=== PATIENT | female | born 1955 | race Caucasian/White ===

== ENCOUNTER → 2016-05-26 | Outpatient (REF) | payer MEDICARE ==
[~2016-05-26] MED LIST: ASPI325T PO; CELE20TA PO; FLAG500T PO; GAVISUS PO; HYDR25T PO; LOPE2CA PO; MYLASUS2 PO; NEXI20CA PO; VIVE0.1D TD; WELLTAB38 PO; XANA1TAB2 PO
== END ==
LOC: M LAB REF 09:23
PROVIDERS: ATTEND Internal Medicine Gastroenterology
DX: R10.33 Periumbilical pain (principal); R11.0 Nausea; R63.0 Anorexia; R19.7 Diarrhea, unspecified; K58.0 Irritable bowel syndrome with diarrhea; K31.89 Other diseases of stomach and duodenum

== ENCOUNTER → 2017-03-08 | Outpatient (REF) | payer MEDICARE ==
[~2017-03-08] MED LIST changes: +HYDR-3363 PO; -HYDR25T PO; +MYLASUS16 PO; -MYLASUS2 PO
[2017-03-08 12:17] LABS: MEAN CORPUSCULAR HEMOGLOBIN 31.3 pg (27.0-33.0); MEAN CORPUSCULAR HGB CONC 33.4 g/dl (32.0-36.5); MEAN CORPUSCULAR VOLUME 93.6 fl (80.0-96.0); PLATELET COUNT, AUTOMATED 269 10^3/uL (150-450); RED CELL DISTRIBUTION WIDTH 13.3 % (11.5-14.5); WHITE BLOOD COUNT 11.3 10^3/uL (4.0-10.0)
[2017-03-08 12:49] LABS: VITAMIN B12 LEVEL 614 PG/ML (247-911)
[2017-03-08 12:57] LABS: ALBUMIN 3.6 GM/DL (3.2-5.2); ALBUMIN/GLOBULIN RATIO 1.16 (1.00-1.93); ALKALINE PHOSPHATASE 109 U/L (45-117); ALT/SGPT 21 U/L (12-78); ANION GAP 7 MEQ/L (8-16); AST/SGOT 11 U/L (15-37); BILIRUBIN,TOTAL 0.4 MG/DL (0.2-1.0); BLOOD UREA NITROGEN 11 MG/DL (7-18); CALCIUM LEVEL 9.1 MG/DL (8.8-10.2); CARBON DIOXIDE LEVEL 29 MEQ/L (21-32); CHLORIDE LEVEL 106 MEQ/L (98-107); CHOLESTEROL LEVEL 202 MG/DL (<200); CREATININE FOR GFR 0.83 MG/DL (0.55-1.02); GLOMERULAR FILTRATION RATE > 60.0 (>45); GLUCOSE, FASTING 75 MG/DL (80-110); POTASSIUM SERUM 4.2 MEQ/L (3.5-5.1); SODIUM LEVEL 142 MEQ/L (136-145); TOTAL PROTEIN 6.7 GM/DL (6.4-8.2); TRIGLYCERIDES LEVEL 117 MG/DL (<150)
== END ==
LOC: M SFHCLERA 10:18
PROVIDERS: ATTEND Physician Assistant
DX: E78.2 Mixed hyperlipidemia (principal); F41.9 Anxiety disorder, unspecified; E53.8 Deficiency of other specified B group vitamins

== ENCOUNTER → 2018-02-16 | Outpatient (REF) | payer MEDICARE ==
[2018-02-16 16:57] LABS: ALBUMIN 3.7 GM/DL (3.2-5.2); ALBUMIN/GLOBULIN RATIO 1.32 (1.00-1.93); ALKALINE PHOSPHATASE 96 U/L (45-117); ALT/SGPT 21 U/L (12-78); AMYLASE 56 U/L (25-115); ANION GAP 7 MEQ/L (8-16); AST/SGOT 13 U/L (7-37); BASO % 0.1 % (0.0-1.0); BILIRUBIN,TOTAL 0.4 MG/DL (0.2-1.0); BLOOD UREA NITROGEN 12 MG/DL (7-18); CALCIUM LEVEL 8.8 MG/DL (8.8-10.2); CARBON DIOXIDE LEVEL 28 MEQ/L (21-32); CHLORIDE LEVEL 107 MEQ/L (98-107); CREATININE FOR GFR 0.83 MG/DL (0.55-1.30); GLOMERULAR FILTRATION RATE > 60.0 (>45); GLUCOSE, FASTING 75 MG/DL (70-100); HEMATOCRIT 43.4 % (36.0-47.0); HEMOGLOBIN 14.6 g/dl (12.0-15.5); IMMATURE GRANULOCYTE % 0.3 % (0-3.0); LIPASE 166 U/L (73-393); LYMPH # 4.3 10^3/uL (1.5-4.5); LYMPH % 37.6 % (24.0-44.0); MEAN CORPUSCULAR HEMOGLOBIN 31.4 pg (27.0-33.0); MEAN CORPUSCULAR HGB CONC 33.6 g/dl (32.0-36.5); MEAN CORPUSCULAR VOLUME 93.3 fl (80.0-96.0); MONO # 0.8 10^3/uL (0.0-0.8); MONO % 6.7 % (0.0-5.0); NEUTROPHILS # 6.3 10^3/uL (1.8-7.7); NEUTROPHILS % 55.3 % (36.0-66.0); PLATELET COUNT, AUTOMATED 261 10^3/uL (150-450); POTASSIUM SERUM 4.4 MEQ/L (3.5-5.1); RED BLOOD COUNT 4.65 10^6/uL (4.00-5.40); SODIUM LEVEL 142 MEQ/L (136-145); TOTAL PROTEIN 6.5 GM/DL (6.4-8.2); WHITE BLOOD COUNT 11.5 10^3/uL (4.0-10.0)
== END ==
LOC: M SFHCPLAZ 12:59
DX: R10.13 Epigastric pain (principal)
CPT/HCPCS: 82150

== ENCOUNTER → 2018-04-15 | Outpatient (REF) | payer MEDICARE ==
[2018-04-15 11:55] LABS: HEMATOCRIT 46.1 % (36.0-47.0); HEMOGLOBIN 15.3 g/dl (12.0-15.5); MEAN CORPUSCULAR HEMOGLOBIN 31.4 pg (27.0-33.0); MEAN CORPUSCULAR HGB CONC 33.2 g/dl (32.0-36.5); MEAN CORPUSCULAR VOLUME 94.5 fl (80.0-96.0); PLATELET COUNT, AUTOMATED 269 10^3/uL (150-450); RED BLOOD COUNT 4.88 10^6/uL (4.00-5.40); RED CELL DISTRIBUTION WIDTH 13.1 % (11.5-14.5); WHITE BLOOD COUNT 8.6 10^3/uL (4.0-10.0)
[2018-04-15 12:21] LABS: MALB URINE SIEMENS 9.1 MG/L; MAU/CREAT RATIO 5.4 MCG/MG (0.0-30.0)
[2018-04-15 12:37] LABS: ALBUMIN 3.8 GM/DL (3.2-5.2); ALBUMIN/GLOBULIN RATIO 1.41 (1.00-1.93); ALKALINE PHOSPHATASE 109 U/L (45-117); ALT/SGPT 24 U/L (12-78); ANION GAP 6 MEQ/L (8-16); AST/SGOT 12 U/L (7-37); BILIRUBIN,TOTAL 0.6 MG/DL (0.2-1.0); BLOOD UREA NITROGEN 14 MG/DL (7-18); CALCIUM LEVEL 8.9 MG/DL (8.8-10.2); CARBON DIOXIDE LEVEL 31 MEQ/L (21-32); CHLORIDE LEVEL 105 MEQ/L (98-107); CHOLESTEROL LEVEL 181 MG/DL (<200); CHOLESTEROL RISK RATIO 3.067 (<5); FOLATE 17.7 NG/ML (>5.4); FREE T4 1.28 NG/DL (0.76-1.46); GLOMERULAR FILTRATION RATE > 60.0 (>45); GLUCOSE, FASTING 97 MG/DL (70-100); HDL CHOLESTEROL 59 MG/DL (>40); LDL CHOLESTEROL 99 MG/DL (<100); NON-HDL-C 122 MG/DL; POTASSIUM SERUM 4.1 MEQ/L (3.5-5.1); SODIUM LEVEL 142 MEQ/L (136-145); TOTAL 25(OH) VITAMIN D 29.8 NG/ML (30.0-100.0); TOTAL PROTEIN 6.5 GM/DL (6.4-8.2); TRIGLYCERIDES LEVEL 113 MG/DL (<150); VITAMIN B12 LEVEL 557 PG/ML (247-911)
== END ==
LOC: M SFHCPLAZ 08:35
DX: E78.5 Hyperlipidemia, unspecified (principal); E53.8 Deficiency of other specified B group vitamins; F41.9 Anxiety disorder, unspecified; R03.0 Elevated blood-pressure reading, without diagnosis of hypertension; E55.9 Vitamin D deficiency, unspecified
CPT/HCPCS: 82746

== ENCOUNTER → 2018-07-21 | Outpatient (REF) | payer MEDICARE ==
[2018-07-21 14:56] LABS: INFLUENZA A AMPLIFICATION NEGATIVE (NEGATIVE); INFLUENZA B AMPLIFICATION NEGATIVE (NEGATIVE)
== END ==
LOC: M LAB REF 13:33
PROVIDERS: ATTEND Physician Assistant
DX: J11.1 Influenza due to unidentified influenza virus with other respiratory manifestations (principal)

== ENCOUNTER → 2018-12-13 | Outpatient (REF) | payer MEDICARE ==
[~2018-12-13] MED LIST changes: +ASPI-1 PO; -ASPI325T PO
== END ==
LOC: M SFHCLERA 14:24
PROVIDERS: ATTEND Nurse Practitioner Family
DX: J02.9 Acute pharyngitis, unspecified (principal)
CPT/HCPCS: 87880; G0463

== ENCOUNTER → 2019-11-17 | Outpatient (CLI) | payer MEDICARE ==
[2019-11-17 12:55] LABS: ALBUMIN 3.5 GM/DL (3.2-5.2); ALT/SGPT 27 U/L (12-78); BILIRUBIN,TOTAL 0.4 MG/DL (0.2-1.0); BLOOD UREA NITROGEN 12 MG/DL (7-18); CARBON DIOXIDE LEVEL 29 MEQ/L (21-32); CHLORIDE LEVEL 108 MEQ/L (98-107); CHOLESTEROL LEVEL 200 MG/DL (<200); CHOLESTEROL RISK RATIO 3.921 (<5); CREATININE FOR GFR 0.96 MG/DL (0.55-1.30); GLOMERULAR FILTRATION RATE > 60.0 (>45); GLUCOSE, FASTING 85 MG/DL (70-100); HDL CHOLESTEROL 51 MG/DL (>40); LDL CHOLESTEROL 123 MG/DL (<100); NON-HDL-C 149 MG/DL; POTASSIUM SERUM 4.6 MEQ/L (3.5-5.1); SODIUM LEVEL 140 MEQ/L (136-145); TOTAL PROTEIN 6.7 GM/DL (6.4-8.2); TRIGLYCERIDES LEVEL 128 MG/DL (<150)
== END ==
LOC: M WUC 10:08
PROVIDERS: ATTEND Family Medicine
DX: Z13.220 Encounter for screening for lipoid disorders (principal); Z13.1 Encounter for screening for diabetes mellitus; Z79.899 Other long term (current) drug therapy

== ENCOUNTER 2020-10-19 18:32 | Emergency (ER) | payer MEDICARE ==
[~2020-10-19] VITALS: Ht 154.9 cm; Wt 67.4 kg
[2020-10-19] MEDS ORDERED: VIST25CA PO (18:45)
[2020-10-19] MEDS ORDERED: OMEP40CA97 PO (18:45)
[2020-10-19] MEDS ORDERED: DOXY100T27 PO (18:45)
[2020-10-19] MEDS ORDERED: LEXA1TAB2 PO (18:45)
[2020-10-19 21:01] LABS: HEMOGLOBIN 15.7 g/dl (12.0-15.5); MEAN CORPUSCULAR HGB CONC 32.7 g/dl (32.0-36.5); MEAN CORPUSCULAR VOLUME 91.8 fl (80.0-96.0); PLATELET COUNT, AUTOMATED 325 10^3/uL (150-450); RED BLOOD COUNT 5.23 10^6/uL (4.00-5.40)
[2020-10-19 21:02] LABS: WHITE BLOOD COUNT 12.2 10^3/uL (4.0-10.0)
[2020-10-19 21:19] LABS: ATYPICAL LYMPH 12 % (0-5); EOSINOPHILS 1 % (0-3); LYMPHOCYTES 28 % (16-44); MONOCYTES 3 % (0-5); NEUTROPHILS 56 % (28-66); PLATELET ESTIMATE NORMAL (NORMAL); SMUDGE CELLS 1+
[2020-10-19 21:36] LABS: ALBUMIN 3.9 GM/DL (3.2-5.2); ALT/SGPT 28 U/L (12-78); BILIRUBIN,DIRECT 0.1 MG/DL (0.0-0.2); BILIRUBIN,TOTAL 0.4 MG/DL (0.2-1.0); BLOOD UREA NITROGEN 11 MG/DL (7-18); CALCIUM LEVEL 9.3 MG/DL (8.8-10.2); CARBON DIOXIDE LEVEL 28 MEQ/L (21-32); CHLORIDE LEVEL 105 MEQ/L (98-107); CREATININE FOR GFR 1.09 MG/DL (0.55-1.30); GLOMERULAR FILTRATION RATE 53.3 (>45); GLUCOSE, FASTING 111 MG/DL (70-100); LIPASE 107 U/L (73-393); POTASSIUM SERUM 4.1 MEQ/L (3.5-5.1); SODIUM LEVEL 139 MEQ/L (136-145); TOTAL PROTEIN 7.4 GM/DL (6.4-8.2)
[2020-10-19 22:36] LABS: MONO REFLEX EBV COMP NEGATIVE (NEGATIVE)
[2020-10-19 22:43] VITALS: BP 160/115
[2020-10-22 16:13] LABS: EBV AB TO NUCLEAR ANTIGEN 76.9 U/mL (0.0-17.9); EBV VIRAL CAPSID AG IgG >600.0 U/mL (0.0-17.9); EBV VIRAL CAPSID AG IgM <36.0 U/mL (0.0-35.9)
== END 2020-10-19 22:47 | disposition home or self-care (01) ==
LOC: M ED 18:32
DX: F41.9 Anxiety disorder, unspecified (principal); D72.829 Elevated white blood cell count, unspecified; Z85.820 Personal history of malignant melanoma of skin; Z85.828 Personal history of other malignant neoplasm of skin; K44.9 Diaphragmatic hernia without obstruction or gangrene; K58.9 Irritable bowel syndrome, unspecified; K21.9 Gastro-esophageal reflux disease without esophagitis; F32.9 Major depressive disorder, single episode, unspecified; Z88.0 Allergy status to penicillin; Z88.2 Allergy status to sulfonamides; Z88.8 Allergy status to other drugs, medicaments and biological substances

== ENCOUNTER → 2020-11-01 | Outpatient (REF) | payer MEDICARE ==
[~2020-11-01] MED LIST changes: +DOXY100T27 PO; +LEXA1TAB2 PO; +OMEP40CA4 PO; +VIST25CA PO
[2020-11-01 13:09] LABS: BASO # 0.1 10^3/uL (0.0-0.2); BASO % 0.4 % (0.0-1.0); EOS # 0.1 10^3/uL (0.0-0.5); HEMATOCRIT 48.9 % (36.0-47.0); LYMPH # 4.4 10^3/uL (1.5-5.0); LYMPH % 39.2 % (24.0-44.0); MEAN CORPUSCULAR HEMOGLOBIN 30.6 pg (27.0-33.0); MEAN CORPUSCULAR HGB CONC 32.7 g/dl (32.0-36.5); MEAN CORPUSCULAR VOLUME 93.5 fl (80.0-96.0); MONO # 0.7 10^3/uL (0.0-0.8); MONO % 5.8 % (2.0-8.0); NEUTROPHILS # 5.9 10^3/uL (1.5-8.5); NEUTROPHILS % 53.2 % (36.0-66.0); PLATELET COUNT, AUTOMATED 319 10^3/uL (150-450); RED BLOOD COUNT 5.23 10^6/uL (4.00-5.40); WHITE BLOOD COUNT 11.2 10^3/uL (4.0-10.0)
[2020-11-01 14:20] LABS: ALBUMIN 3.7 GM/DL (3.2-5.2); BILIRUBIN,TOTAL 0.3 MG/DL (0.2-1.0); CALCIUM LEVEL 9.5 MG/DL (8.8-10.2); CREATININE FOR GFR 1.12 MG/DL (0.55-1.30); GLOMERULAR FILTRATION RATE 51.7 (>45); POTASSIUM SERUM 4.4 MEQ/L (3.5-5.1); THYROID STIMULATING HORMONE 3.23 uIU/ML (0.358-3.740)
== END ==
LOC: M SFHCPLAZ 11:17
PROVIDERS: ATTEND Family Medicine
DX: R25.1 Tremor, unspecified (principal); D72.829 Elevated white blood cell count, unspecified

== ENCOUNTER → 2020-11-04 | Outpatient (REF) | payer MEDICARE ==
[2020-11-04 18:05] LABS: HEMATOCRIT 44.6 % (36.0-47.0); HEMOGLOBIN 14.7 g/dl (12.0-15.5); MEAN CORPUSCULAR HEMOGLOBIN 30.8 pg (27.0-33.0); MEAN CORPUSCULAR VOLUME 93.3 fl (80.0-96.0); PLATELET COUNT, AUTOMATED 294 10^3/uL (150-450); RED BLOOD COUNT 4.78 10^6/uL (4.00-5.40); WHITE BLOOD COUNT 10.4 10^3/uL (4.0-10.0)
== END ==
LOC: M PLALAB 13:52
PROVIDERS: ATTEND Family Medicine
DX: D58.2 Other hemoglobinopathies (principal)

== ENCOUNTER → 2021-01-29 | Outpatient (REF) | payer MEDICARE ==
[2021-01-29 16:35] LABS: CALCIUM LEVEL 8.9 MG/DL (8.8-10.2); CREATININE FOR GFR 1.09 MG/DL (0.55-1.30); GLOMERULAR FILTRATION RATE 53.3 (>45); POTASSIUM SERUM 4.5 MEQ/L (3.5-5.1)
== END ==
LOC: M WUC 15:28
PROVIDERS: ATTEND Family Medicine
DX: I10 Essential (primary) hypertension (principal)

== ENCOUNTER → 2021-02-05 | Outpatient (CLI) | payer MEDICARE ==
[2021-02-05 14:44] LABS: CREATININE FOR GFR 1.01 MG/DL (0.55-1.30); GLOMERULAR FILTRATION RATE 58.2 (>45); POTASSIUM SERUM 4.1 MEQ/L (3.5-5.1)
== END ==
LOC: M PLALAB 11:37
PROVIDERS: ATTEND Family Medicine
DX: R94.4 Abnormal results of kidney function studies (principal)

== ENCOUNTER → 2021-02-20 | Outpatient (CLI) | payer MEDICARE ==
[2021-02-20 15:14] LABS: BLOOD UREA NITROGEN 8 MG/DL (7-18); CALCIUM LEVEL 9.2 MG/DL (8.8-10.2); CARBON DIOXIDE LEVEL 28 MEQ/L (21-32); CHLORIDE LEVEL 107 MEQ/L (98-107); CREATININE FOR GFR 0.98 MG/DL (0.55-1.30); GLOMERULAR FILTRATION RATE > 60.0 (>45); GLUCOSE, FASTING 88 MG/DL (70-100); POTASSIUM SERUM 4.4 MEQ/L (3.5-5.1); SODIUM LEVEL 140 MEQ/L (136-145)
== END ==
LOC: M PLALAB 11:48
PROVIDERS: ATTEND Family Medicine
DX: R94.4 Abnormal results of kidney function studies (principal)
CPT/HCPCS: 36415; 80048; G0463

== ENCOUNTER 2021-04-14 10:55 | Emergency (ER) | payer MEDICARE ==
[~2021-04-14] VITALS: Ht 154.9 cm; Wt 70.0 kg
[2021-04-14 10:56] VITALS: BP 144/81
[2021-04-15] MEDS ORDERED: AMLO1TAB24 (13:27)
[2021-04-15] MEDS ORDERED: LOSA50TA28 (13:27)
[2021-04-15] MEDS ORDERED: PROM25TA12 PO (18:12)
[2021-04-15] MEDS ORDERED: SIME180C25 PO (18:12)
== END 2021-04-14 11:04 | disposition left against medical advice (07) ==
LOC: M ED 10:55
DX: Z53.21 Procedure and treatment not carried out due to patient leaving prior to being seen by health care provider (principal)

== ENCOUNTER 2021-04-15 12:08 | Emergency (ER) | payer MEDICARE ==
[~2021-04-15] VITALS: Ht 157.5 cm; Wt 68.6 kg
--- OUTSIDE RECORDS SUMMARY | 2021-04-15 12:15 | CCD ---
Author Author [facility] Organization [facility] Address Unknown Phone Unavailable Care Team Providers Care Communications Consultant Name Role Phone TURRIN, JOSÉ MANUEL Unavailable Unavailable TURRIN, JOSÉ MANUEL Unavailable Unavailable TURRIN, JOSÉ MANUEL Unavailable Unavailable TURRIN, JOSÉ MANUEL Unavailable Unavailable [place], Emma DRAFTING LAYOUT MAN Unavailable Unavailable [place], Emma DRAFTING LAYOUT MAN Unavailable Unavailable [place], Emma DRAFTING LAYOUT MAN Unavailable Unavailable [place], Emma DRAFTING LAYOUT MAN Unavailable Unavailable [place], Emma DRAFTING LAYOUT MAN Unavailable Unavailable [place], Emma DRAFTING LAYOUT MAN Unavailable Unavailable [place], Emma DRAFTING LAYOUT MAN Unavailable Unavailable [place], Emma DRAFTING LAYOUT MAN Unavailable Unavailable [place], Emma DRAFTING LAYOUT MAN Unavailable Unavailable [place], Emma DRAFTING LAYOUT MAN Unavailable Unavailable [place], Emma DRAFTING LAYOUT MAN Unavailable Unavailable [place], Emma DRAFTING LAYOUT MAN Unavailable Unavailable [place], Emma DRAFTING LAYOUT MAN Unavailable Unavailable [place], Emma DRAFTING LAYOUT MAN Unavailable Unavailable [place], Emma DRAFTING LAYOUT MAN Unavailable Unavailable [place], Emma DRAFTING LAYOUT MAN Unavailable Unavailable [place], Emma DRAFTING LAYOUT MAN Unavailable Unavailable [place], Emma DRAFTING LAYOUT MAN Unavailable Unavailable [place], Emma DRAFTING LAYOUT MAN Unavailable Unavailable [place], Emma DRAFTING LAYOUT MAN Unavailable Unavailable [place], Emma DRAFTING LAYOUT MAN Unavailable Unavailable [place], Emma DRAFTING LAYOUT MAN Unavailable Unavailable [place], Emma DRAFTING LAYOUT MAN Unavailable Unavailable [place], Mema DRAFTING LAYOUT MAN Unavailable Unavailable [place], Emma DRAFTING LAYOUT MAN Unavailable Unavailable [place], Emma DRAFTING LAYOUT MAN Unavailable Unavailable [place], Emma DRAFTING LAYOUT MAN Unavailable Unavailable [place], Emma DRAFTING LAYOUT MAN Unavailable Unavailable [place], Emma DRAFTING LAYOUT MAN Unavailable Unavailable [place], Emma DRAFTING LAYOUT MAN Unavailable Unavailable [place], Emma DRAFTING LAYOUT MAN Unavailable Unavailable [place], Emma DRAFTING LAYOUT MAN Unavailable Unavailable [place], Emma DRAFTING LAYOUT MAN Unavailable Unavailable [place], Emma DRAFTING LAYOUT MAN Unavailable Unavailable [place], Emma DRAFTING LAYOUT MAN Unavailable Unavailable [place], Emma DRAFTING LAYOUT MAN Unavailable Unavailable [place], G EDWARD RPA Unavailable Unavailable [place], G EDWARD RPA Unavailable Unavailable [place], G EDWARD RPA Unavailable Unavailable [place], G EDWARD RPA Unavailable Unavailable [place], G EDWARD RPA Unavailable Unavailable [place], G EDWARD RPA Unavailable Unavailable [place], G EDWARD RPA Unavailable Unavailable [place], G EDWARD RPA Unavailable Unavailable [place], G EDWARD RPA Unavailable Unavailable [place], G EDWARD RPA Unavailable Unavailable [place], G EDWARD RPA Unavailable Unavailable [place], G EDWARD RPA Unavailable Unavailable [place], G EDWARD RPA Unavailable Unavailable [place], G EDWARD RPA Unavailable Unavailable [place], G EDWARD RPA Unavailable Unavailable [place], G EDWARD RPA Unavailable Unavailable [place], G EDWARD RPA Unavailable Unavailable [place], G EDWARD RPA Unavailable Unavailable [place], G EDWARD RPA Unavailable Unavailable [place], G EDWARD RPA Unavailable Unavailable [place], G EDWARD RPA Unavailable Unavailable [place], G EDWARD RPA Unavailable Unavailable [place], G EDWARD RPA Unavailable Unavailable [place], G EDWARD RPA Unavailable Unavailable [place], G EDWARD RPA Unavailable Unavailable [place], G EDWARD RPA Unavailable Unavailable [place], G EDWARD RPA Unavailable Unavailable [place], G EDWARD RPA Unavailable Unavailable [place], G EDWARD RPA Unavailable Unavailable [place], G EDWARD RPA Unavailable Unavailable [place], G EDWARD RPA Unavailable Unavailable Elba WESTON EDWARD RPA Unavailable Unavailable Elba WESTON EDWARD RPA Unavailable Unavailable Elba WESTON EDWARD RPA Unavailable Unavailable WESTON G EDWARD RPA Unavailable Unavailable WESTONElba EDWARD RPA Unavailable Unavailable WESTNO, G EDWARD RPA Unavailable Unavailable Re-disclosure Warning The records that you are about to access may contain information from federally-assisted alcohol or drug abuse programs. If such information is present, then the following federally mandated warning applies: This information has been disclosed to you from records protected by federal confidentiality rules (42 CFR part 2). The federal rules prohibit you from making any further disclosure of this information unless further disclosure is expressly permitted by the written consent of the person to whom it pertains or as otherwise permitted by 42 CFR part 2. A general authorization for the release of medical or other information is NOT sufficient for this purpose. The Federal rules restrict any use of the information to criminally investigate or prosecute any alcohol or drug abuse patient.The records that you are about to access may contain highly sensitive health information, the redisclosure of which is protected by Article 27-F of the [facility] Public Health law. If you continue you may have access to information: Regarding HIV / AIDS; Provided by facilities licensed or operated by the [facility] Office of Mental Health; or Provided by the [facility] Office for People With Developmental Disabilities. If such information is present, then the following [facility] mandated warning applies: This information has been disclosed to you from confidential records which are protected by state law. State law prohibits you from making any further disclosure of this information without the specific written consent of the person to whom it pertains, or as otherwise permitted by law. Any unauthorized further disclosure in violation of state law may result in a fine or fpc sentence or both. A general authorization for the release of medical or other information is NOT sufficient authorization for further disc losure. Encounters Encounter Providers Location Date Indications Data Source(s ) [place] [address] [facility] [address] 03/13/2021 12:00:00 AM EDT eCW1 ([facility]) Outpatient [address] [facility] [place] [address] 02/20/2021 12:00:00 AM EDT eCW1 ([facility]) Outpatient Attender: Emilie Zimmerman [facility] Main Office 02/19/2021 11:45:00 AM EDT [facility] [place] [address] [facility] [address] 02/06/2021 12:00:00 AM EDT eCW1 ([facility]) Unknown [address] [facility] [address] 01/31/2021 12:00:00 AM EDT eCW1 ([facility]) [place] [address] [facility] [address] 01/15/2021 12:00:00 AM EDT eCW1 ([facility]) [place] [address] [facility] [address] 01/14/2021 12:00:00 AM EDT eCW1 ([facility]) Emergency Attender: JOSÉ MANUEL POLO 2020 11:08:00 AM EDT - 01/13/2021 05:06:00 PM EDT [facility] Patient discharged. [place] [address] [facility] [address] 12/13/2020 12:00:00 AM EDT eCW1 ([facility]) Unknown [address] [facility] [address] 12/12/2020 12:00:00 AM EDT eCW1 ([facility]) Unknown [address] [facility] [address] 12/10/2020 12:00:00 AM EDT eCW1 ([facility]) Unknown [address] [facility] [address] 11/30/2020 12:00:00 AM EDT eCW1 ([facility]) Unknown [address] [facility] [address] 11/06/2020 12:00:00 AM EDT eCW1 ([facility]) Unknown [address] [facility] [address] 11/04/2020 12:00:00 AM EDT eCW1 ([facility]) Outpatient [address] [facility] [address] 11/01/2020 12:00:00 AM EDT eCW1 ([facility]) Outpatient Attender: JULISSA WESTON RPA 10/13 11:42:23 AM EDT - 10/13/2020 12:43:18 PM EDT [facility] ([facility] ) Unknown [address] [facility] [address] 10/07/2020 12:00:00 AM EDT eCW1 ([facility]) Unknown [address] [facility] [address] 05/05/2020 12:00:00 AM EST eCW1 ([facility]) Medications Medication Brand Name Start Date Product Form Dose Route Admi nistrative Instructions Pharmacy Instructions Status Indications Reaction Description Data Source(s) 1 mg 03/20/2021 12:00:00 AM EDT tablet 120 TAKE ONE TABLET BY MOUTH FOUR TIMES A DAY MAXIMUM DAILY DOSE = 4 TABLETS TAKE ONE TABLET BY MOUTH FOUR TIMES A DAY MAXIMUM DAILY DOSE = 4 TABLETS SOLD: 03/21/2021 [facility] 250 mg 03/04/2021 12:00:00 AM EDT tablet 11 TAKE 2 TABLETS BY MOUTH AT ONCE ON DAY 1 THEN 1 DAILY FOR THE NEXT 9 DAYS TAKE 2 TABLETS BY MOUTH AT ONCE ON DAY 1 THEN 1 DAILY FOR THE NEXT 9 DAYS SOLD: 03/04/2021 [facility] 90 mcg/actuation 03/03/2021 12:00:00 AM EDT HFA aerosol inha ler 8 INHALE 2 PUFFS BY MOUTH THREE TIMES A DAY FOR 10 DAYS INHALE 2 PUFFS BY MOUTH THREE TIMES A DAY FOR 10 DAYS SOLD: 03/03/2021 [facility] 20 mg 03/03/2021 12:00:00 AM EDT tablet 5 TAKE ONE TABLET BY MOUTH ONCE DAILY FOR 5 DAYS TAKE ONE TABLET BY MOUTH ONCE DAILY FOR 5 DAYS SOLD: 1 [facility] Amlodipine 5 MG Oral Tablet amLODIPine Besylate 5 MG amLODIP ine Besylate 5 MG 02/20/2021 12:00:00 AM EDT 1.0 {tablet} active amLODIPine Besylate 5 MG eCW1 ([facility]) 1 mg 02/20/2021 12:00:00 AM EDT tablet 120 TAKE ONE TABLET BY MOUTH FOUR TIMES A DAY MAXIMUM DAILY DOSE = 4 TABLETS TAKE ONE TABLET BY MOUTH FOUR TIMES A DAY MAXIMUM DAILY DOSE = 4 TABLETS SOLD: 02/20/2021 [facility] Amlodipine 5 MG Oral Tablet amLODIPine Besylate 5 MG amLODIP ine Besylate 5 MG 02/20/2021 12:00:00 AM EDT 1.0 {tablet} active amLODIPine Besylate 5 MG eCW1 ([facility]) 5 mg 02/20/2021 12:00:00 AM EDT tablet 30 TAKE ONE TABLET BY MOUTH EVERY DAY TAKE ONE TABLET BY MOUTH EVERY DAY SOLD: 02/20/2021 [facility] 5 mg 02/20/2021 12:00:00 AM EDT tablet 30 TAKE ONE TABLET BY MOUTH EVERY DAY TAKE ONE TABLET BY MOUTH EVERY DAY SOLD: 03/20/2021 [facility] 1 mg 01/16/2021 12:00:00 AM EDT tablet 120 TAKE 1 TABLET BY MOUTH FOUR TIMES A DAY MAXIMUM DAILY DOSE = 4 TABLETS TAKE 1 TABLET BY MOUTH FOUR TIMES A DAY MAXIMUM DAILY DOSE = 4 TABLETS SOLD: 01/18/2021 [facility] 50 mg 01/13/2021 12:00:00 AM EDT tablet 30 TAKE ONE TABLET BY MOUTH EVERY DAY TAKE ONE TABLET BY MOUTH EVERY DAY SOLD: 03/05/2021 [facility] 50 mg 01/13/2021 12:00:00 AM EDT tablet 30 TAKE ONE TABLET BY MOUTH EVERY DAY TAKE ONE TABLET BY MOUTH EVERY DAY SOLD: 02/08/2021 [facility] 50 mg 01/13/2021 12:00:00 AM EDT tablet 30 TAKE ONE TABLET BY MOUTH EVERY DAY TAKE ONE TABLET BY MOUTH EVERY DAY SOLD: 01/13/2021 [facility] 250 mg 01/08/2021 12:00:00 AM EDT tablet 6 TAKE 2 TABLETS BY MOUTH ONCE PER DAY FOR 1 DAY THEN 1 TABLET ONCE DAILY DAYS 2-5 TAKE 2 TABLETS BY MOUTH ONCE PER DAY FOR 1 DAY THEN 1 TABLET ONCE DAILY DAYS 2-5 SOLD: 01/08/2021 [facility] 1 mg 12/13/2020 12:00:00 AM EDT tablet 120 TAKE ONE TABLET BY MOUTH FOUR TIMES A DAY MAXIMUM DAILY DOSE = 4 TABLETS TAKE ONE TABLET BY MOUTH FOUR TIMES A DAY MAXIMUM DAILY DOSE = 4 TABLETS SOLD: 12/15/2020 [facility] 0.1 mg/24 hr 12/13/2020 12:00:00 AM EDT patch semiweekly 8 APPLY 1 PATCH TO SKIN TWICE WEEKLY DIRECTED APPLY 1 PATCH TO SKIN TWICE WEEKLY DIRECTED SOLD: 12/15/2020 [facility] 0.1 mg/24 hr 12/13/2020 12:00:00 AM EDT patch semiweekly 8 APPLY 1 PATCH TO SKIN TWICE WEEKLY DIRECTED APPLY 1 PATCH TO SKIN TWICE WEEKLY DIRECTED SOLD: 03/25/2021 [facility] 0.1 mg/24 hr 12/13/2020 12:00:00 AM EDT patch semiweekly 8 APPLY 1 PATCH TO SKIN TWICE WEEKLY DIRECTED APPLY 1 PATCH TO SKIN TWICE WEEKLY DIRECTED SOLD: 02/02/2021 [facility] 40 mg 12/02/2020 12:00:00 AM EDT capsule,delayed release (DR/EC) 90 TAKE 1 CAPSULE BY MOUTH 30MIN.BEFORE MORNING MEAL ONCE A DAY TAKE 1 CAPSULE BY MOUTH 30MIN.BEFORE MORNING MEAL ONCE A DAY SOLD: 12/06/2020 [facility] 1 mg 11/05/2020 12:00:00 AM EDT tablet 120 TAKE ONE TABLET BY MOUTH FOUR TIMES A DAY MAXIMUM DAILY DOSE = FOUR TABLETS TAKE ONE TABLET BY MOUTH FOUR TIMES A DAY MAXIMUM DAILY DOSE = FOUR TABLETS SOLD: 11/06/2020 [facility] 100 mg 10/18/2020 12:00:00 AM EDT tablet 14 TAKE ONE TABLET BY MOUTH TWICE A DAY FOR 7 DAYS TAKE ONE TABLET BY MOUTH TWICE A DAY FOR 7 DAYS SOLD: 2020 [facility] 1 mg 10/02/2020 12:00:00 AM EDT tablet 120 TAKE ONE TABLET BY MOUTH FOUR TIMES A DAY . MAXIMUM DAILY DOSE = 4 TAKE ONE TABLET BY MOUTH FOUR TIMES A DA Y . MAXIMUM DAILY DOSE = 4 SOLD: 10/02/2020 [facility] 168 HR Estradiol 0.62478 MG/HR Transdermal System 0.1 mg/24 hr ESTRADIOL 09/14/2020 12:00:00 AM EDT patch weekly 12 APPLY 1 PATCH WEEKLY APPLY 1 PATCH WEEKLY SOLD: 09/16/2020 [facility] 1 mg 08/22/2020 12:00:00 AM EDT tablet 120 TAKE ONE TABLET BY MOUTH FOUR TIMES A DAY MAXIMUM DAILY DOSE = 4 TABLETS TAKE ONE TABLET BY MOUTH FOUR TIMES A DAY MAXIMUM DAILY DOSE = 4 TABLETS SOLD: 08/25/2020 [facility] 250 mg 07/23/2020 12:00:00 AM EST tablet 6 TAKE 2 TABLETS BY MOUTH AT ONCE ON FIRST DAY THEN TAKE ONE DAILY DAYS 2-5 TAKE 2 TABLETS BY MOUTH AT ONCE ON FIRST DAY THEN TAKE ONE DAILY DAYS 2-5 SOLD: 07/23/2020 [facility] 1 mg 07/17/2020 12:00:00 AM EST tablet 120 TAKE ONE TABLET BY MOUTH FOUR TIMES A DAY MAXIMUM DAILY DOSE = 4 TABLETS TAKE ONE TABLET BY MOUTH FOUR TIMES A DAY MAXIMUM DAILY DOSE = 4 TABLETS SOLD: 07/18/2020 [facility] 1 mg 06/14/2020 12:00:00 AM EST tablet 120 TAKE ONE TABLET BY MOUTH FOUR TIMES A DAY MAXIMUM DAILY DOSE = 4 TABLETS TAKE ONE TABLET BY MOUTH FOUR TIMES A DAY MAXIMUM DAILY DOSE = 4 TABLETS SOLD: 06/18/2020 [facility] 1 mg 05/14/2020 12:00:00 AM EST tablet 120 TAKE ONE TABLET BY MOUTH FOUR TIMES A DAY MAXIMUM DAILY DOSE = 4 TABLETS TAKE ONE TABLET BY MOUTH FOUR TIMES A DAY MAXIMUM DAILY DOSE = 4 TABLETS SOLD: 05/15/2020 [facility] 40 mg 05/06/2020 12:00:00 AM EST capsule,delayed release (DR/EC) 90 TAKE 1 CAPSULE BY MOUTH ONCE A DAY 30 MINUTES BEFORE MORNING MEAL TAKE 1 CAPSULE BY MOUTH ONCE A DAY 30 MINUTES BEFORE MORNING MEAL SOLD: 08/25/2020 [facility] 40 mg 05/06/2020 12:00:00 AM EST capsule,delayed release (DR/EC) 90 TAKE 1 CAPSULE BY MOUTH ONCE A DAY 30 MINUTES BEFORE MORNING MEAL TAKE 1 CAPSULE BY MOUTH ONCE A DAY 30 MINUTES BEFORE MORNING MEAL SOLD: 05/07/2020 [facility] 1 mg 04/12/2020 12:00:00 AM EST tablet 120 TAKE ONE TABLET BY MOUTH FOUR TIMES A DAY MAX 4TABS/DAY TAKE ONE TABLET BY MOUTH FOUR TIMES A DA Y MAX 4TABS/DAY SOLD: 04/16/2020 [facility] 1 mg 03/09/2020 12:00:00 AM EDT tablet 120 TAKE 1 TABLET BY MOUTH 4 TIMES A DAY MAX DAILY DOSE = 4 TABLETS TAKE 1 TABLET BY MOUTH 4 TIMES A DAY MAX DAILY DOSE = 4 TABLETS SOLD: 03/11/2020 [facility] 0.1 mg/24 hr 11/20/2019 12:00:00 AM EDT patch semiweekly 8 APPLY 1 PATCH BY TRANSDERMAL ROUTE TWICE WEEKLY MAXIMUM DAILY DOSE = 0.1 MG APPLY 1 PATCH BY TRANSDERMAL ROUTE TWICE WEEKLY MAXIMUM DAILY DOSE = 0.1 MG SOLD: 05/13/2020 [facility] 0.1 mg/24 hr 11/20/2019 12:00:00 AM EDT patch semiweekly 8 APPLY 1 PATCH BY TRANSDERMAL ROUTE TWICE WEEKLY MAXIMUM DAILY DOSE = 0.1 MG APPLY 1 PATCH BY TRANSDERMAL ROUTE TWICE WEEKLY MAXIMUM DAILY DOSE = 0.1 MG SOLD: 03/20/2020 [facility] 0.1 mg/24 hr 11/20/2019 12:00:00 AM EDT patch semiweekly 8 APPLY 1 PATCH BY TRANSDERMAL ROUTE TWICE WEEKLY MAXIMUM DAILY DOSE = 0.1 MG APPLY 1 PATCH BY TRANSDERMAL ROUTE TWICE WEEKLY MAXIMUM DAILY DOSE = 0.1 MG SOLD: 07/14/2020 [facility] Insurance Providers Payer name Policy type / Coverage type Policy ID Covered alliance party ID Covered alliance party's relationship to arechiga Policy Are[employer]iga Plan Information [employer] [id number] [employer] [id number] [employer] [id number] [facility] MEDICARE [id number] Diandra [id number] [employer] [id number] Diandra f [id number] ANSI-Health Maintenance Organization (HM O) [id number] ANSI-Medicare Part B [id number] ANSI-Health Maintenance Organization (HM O) [id number] ANS-Health Maintenance Organization ( O) [id number] ANSI-Medicare Part B [id number] ANSI-Health Maintenance Organization ( O) [id number] ANSI-Medicare Part B [id number] ANSI-Medicare Part B [id number] [facility]-Health Maintenance Organization ( O) [id number] ANSI-Medicare Part B [id number] [facility] ( O) [id number] ANSI-Medicare Part B [id number] ANSI-Medicare Part B [id number] ANSI-Medicare Part B [id number] ANSI-Medicare Part B [id number] [facility] [id number] SP [id number] ANSI-Medicare Part B [id number] ANSI-Medicare Part B [id number] ANSI-Medicare Part B [id number] MEDICARE BLUE PPO 306 [id number] SP [id number] ANSI-Medicare Part B [id number] ANSI-Medicare Part B [id number] ANSI-Medicare Part B [id number] ANSI-Medicare Part B [id number] ANSI-Medicare Part B [id number] ANSI-Medicare Part B [id number] ANSI-Medicare Part B [id number] ANSI-Medicare Part B [id number] ANSI-Medicare Part B [id number] ANSI-Medicare Part B [id number] ANSI-Medicare Part B [id number] ANSI-Medicare Part B [id number] ANSI-Medicare Part B [id number] ANSI-Medicare Part B [id number] ANSI-Medicare Part B [id number] [employer] B [id number] S [id number] MEDICARE BLUE PPO 306 [id number] SP [id number] MEDICARE BLUE PPO 306 [id number] SP [id number] [employer] [id number] Diandra VYM [id number] MEDICARE [id number] SP [id number] A [employer] [place] 200/700 [id number] EXCELLUS BC-BS PPO 306 [id number] SP [id number] WELLCARE [id number] SP [id number] [employer] BCBS P [id number] S [id number] WELLCARE -O/P [id number] 18 [id number] Wellcare P UNAVAILABLE S UNAVAILA BLE WELLCARE O [id number] S [id number] ANSI-Medicare Part B [id number] Problems, Conditions, and Diagnoses Code Display Name Description Problem Type Effective Dates Data Source(s) L72576 Personal history of nicotine dependence Personal history of nicotine dependence Diagnosis 01/13/2021 11:08:00 AM EDT [facility] I10 Essential (primary) hypertension Essential (primary) h ypertension Diagnosis 01/13/2021 11:08:00 AM EDT [facility] F411 Generalized anxiety disorder Generalized anxiety disor alyssa Diagnosis 01/13/2021 11:08:00 AM EDT [facility] R0789 Other chest pain Other chest pain Diagnosis 01/13/2021 11 :08:00 AM EDT [facility] F41.0 [id number] Panic attacks Problem 01/15/2021 12:00:00 AM EDT eCW1 ([facility]) I10 [id number] Primary hypertension Problem 01/15/2021 12:0 0:00 AM EDT eCW1 ([facility]) D58.2 [id number] Elevated hemoglobin Problem 11/04/2020 12:00 :00 AM EDT eCW1 ([facility]) Z85.828 [id number] History of skin cancer Problem 11/01/2020 12 :00:00 AM EDT eCW1 ([facility]) D72.829 [id number] Leukocytosis, unspecified type Problem 11/01/2020 12:00:00 AM EDT eCW1 ([facility]) M81.0 [id number] Osteoporosis, unspecified Problem 11/01/2020 12:00:00 AM EDT eCW1 ([facility]) Surgeries/Procedures Procedure Description Date Indications Data Source(s) OFFICE OUTPATIENT VISIT 25 MINUTES 02/19/2021 12:00:00 AM EDT [facility] ([facility]) Discission of membranous cataract, secondary (procedur e) 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 [address] PHONE: [phone] FAX: [phone] Name .................. : ANNE Lopez Acct Number.................. : [id number] ROOM. ................. : [address] Number ................... : [id number] Stay type ............. : E/R Discharge Date......... ... : Admit Date ......... : 0 01/13/21 Admit Phys .................... : MELANI FERRARI Date of ....... : 1955 Family Phys ................... : Phone .................. : [phone] Age ................................ : 65 Film# .................. .:[id number] Sex ................................. : F Unsigned transcriptions are preliminary reports and do not represent a medical or legal document CHEST PORTABLE [id number] COMPLETE:01/13/21 11:38 Reason(s): Chest Pain PORTABLE CHEST SINGLE VIEW 12:11 PM HISTORY: Chest pain COMPARISON: None. FINDINGS: Mediastinal and hilar structures are normal. Cardiac silhouette is unremarkable. Lungs are clear. No pulmonary edema. No pleural effusions or pneumothorax. IMPRESSION: Normal exam. Electronically Reviewed and Signed By Nirmal Stallings MD , 01/13/21 21:18, [facility] Transcribe Initials: SSR, Transcribe Date: 01/13/21 12:27, Dictation Date: Copy for: EMERGENCY DEPT via modem Copy for: 710 MED REC DISCHARGED Page 1 of 1 Name Value Range Interpretation Code Description Data Alysa rce(s) Supporting Document(s) ID Date Data Source [id number] 01/13/2021 08:53:00 [place] [address] RESPIRATORY CARE REPORT ==== ---------NAME------- NUMBER SEX AGE ADMIT DISC. XRAY# F/C TELLY WALLACE Jessica [id number] F 65 01/13/21 01/13/21 [id number] E/R DATE OF : 1955 M/R# [id number] #: [phone] VT-10 LOCATION: EMERGENCY DEPT EKG 59082 COMPLE TE:01/13/21 13:10 [id number] PHYSICIAN: MELANI FERRARI Name Value Range Interpretation Code Description Data Alysa rce(s) Supporting Document(s) ID Date Data Source [id number] 01/13/2021 11:08:00 AM EDT [facility] 1 OrderSheet [facility] Emergency Department [address] [place] [address] Phone #: ext- [phone] 01/13/2021 11:07 [facility]: [id number] Sex[facility] F : 1955 Age: 65yWEIGHT:63.5 kg (S) HEIGHT:61 inches (S) BMI:26.5ALLERGIES: Amoxicillin, Codeine Sulfate, Sulfa Antibiotics, ValiumCHIEF COMPLAINT: chest painDIAGNOSIS: Chest wall pain, Anxiety, Hypertensive disorderLAB ORDERSOrder Description Priority Entered Acknowledged InitialedCBC w Diff STAT 11:38 01/13/2021 11:48 Melani Riddle Riccardo Frank R.N. M.D.; Reason for ordering with alerts: Clinical consideration given -- 11:38 01/13/2021 José Manuel Polo M.D.CMP STAT 11:01/13/2021 11:48 Melani Riddle Riccardo Frank R.N. M.D.; Reason for ordering with alerts: Clinical consideration given -- 11:38 01/13/2021 José Manuel Polo M.D.Lipase STAT 11:38 01/13/2021 11:48 Melani Riddle Riccardo Frank R.N. M.D.; Reason for ordering with alerts: Clinical consideration given -- 11:38 01/13/2021 José Manuel Polo M.D.Troponin-T STAT 11:38 01/13/2021 11:48 Melani Riddle Riccardo Frank R.N. M.D.; Reason for ordering with alerts: Clinical consideration given -- 11:38 01/13/2021 José Manuel Polo M.D.BNP STAT 11:38 01/13/2021 11:48 Melani Riddle Riccardo Frank R.N. M.D.; Reason for ordering with alerts: Clinical consideration given -- 11:38 01/13/2021 José Manuel Polo M.D.Troponin-T STAT 15:05 01/13/2021 15:11 Melani Riddle Riccardo Frank R.N. M.D.;DIAGNOSTIC STUDY ORDERSOrder Description Priority Entered Acknowledged Initialed 2 OrderSheet [facility] Emergency Department [address] [place] [address] Phone #: [phone] 01/13/2021 11:07 Patient: [id number] Sex: F : 1955 Age: 65yChest Portable 1 STAT 11:38 01/13/2021 11:48 Sorbero,View Melani, José Manuel Frank RNeelimaNNeelima(Oxygen?(No)) MJacquelyn; Reason for ordering with alerts: Clinical consideration given -- 11:38 01/13/2021 José Manuel Polo M.D. Reason for Study: Chest PainMEDICATION/IV/DRIP/FLUID ORDERSOrder Description Priority Entered Acknowledged InitialedAspirin PO 11:38 01/13/2021 11:50 Sorbero,Chewable 81 mg Melani, José Manuel Frank R.NNeelima162 mg M.D.; Reason for ordering with alerts: Clinical consideration given -- 11:38 01/13/2021 José Manuel Polo M.D.Metoprolol PO 25 13:06 01/13/2021 13:16 Sorbero,mg Loborin, José Manuel Frank R.N. M.D.; Reason for ordering with alerts: Clinical consideration given -- 13:06 01/13/2021 José Manuel Polo M.D.cloNIDine PO 0.1 14:01 01/13/2021 14:10 Sorbero,mg Turrin, José Manuel Estrada R.N. M.D.;cloNIDine PO 0.1 15:18 01/13/2021 15:45 Sorbero,mg Turrin, José Manuel Estrada R.N. M.D.;GENERAL ORDERSOrder Description Priority Entered Acknowledged InitialedBlood Pressure 11:38 01/13/2021 11:39 Kemi EDMonitor Melani José ManuelGretta Ma M.D.; Tech1 Reason for ordering with alerts: Clinical consideration given -- 11:38 01/13/2021 José Manuel Polo M.D.Varitypist 11:38 01/13/2021 11:39 [place] [facility](continuous) José Manuel Polo [facility] M.D.; Tech1 Reason for ordering with alerts: Clinical consideration given -- 11:38 01/13/2021 José Manuel Polo M.D.EKG 11:38 01/13/2021 11:39 [place] [facility] José Manuel Polo Tiffany [facility] M.D.; Tech1 Reason for ordering with alerts: Clinical consideration given -- 11:38 01/13/2021 José Manuel Polo M.D. 3 OrderSheet [facility] Emergency Department [address] [place] [address] Phone #: ext- [phone] 01/13/2021 11:07 Patient: MADISON RODRGÍUEZ Sex: F : 1955 Age: 65yNPO 11:38 01/13/2021 11:47 Melani Riddle Riccardo Frank R.N. M.D.; Reason for ordering with alerts: Clinical consideration given -- 11:38 01/13/2021 José Manuel Polo M.D.Obtain Old EKG 11:38 01/13/2021 11:47 Melani Riddle Riccardo Frank R.N. M.D.; Reason for ordering with alerts: Clinical consideration given -- 11:38 01/13/2021 José Manuel Polo M.D.Obtain Old Records 11:38 01/13/2021 11:47 Melani Riddle Riccardo Frank R.N. M.D.; Reason for ordering with alerts: Clinical consideration given -- 11:38 01/13/2021 José Manuel Polo M.D.Oxygen titrate to 11:38 01/13/2021 11:48 Janessa,92% José Manuel Polo R.N., M.D.; Reason for ordering with alerts: Clinical consideration given -- 11:38 01/13/2021 José Manuel Polo M.D.Pulse oximeter 11:01/13/2021 11:48 Khris Riddle) José Manuel Polo R.N., M.D.; Reason for ordering with alerts: Clinical consideration given -- 11:38 01/13/2021 José Manuel Polo M.D.Saline Lock 11:01/13/2021 Ack'd: 14:00 Marylin Montana RN, Riccardo Cancelled: not needed 17:07 Kwadwo Riddle; Estrada Chan Reason for ordering with alerts: Clinical consideration given -- 11:38 01/13/2021 José Manuel Polo M.D.Vitals :01/13/2021 11:39 [place] [facility] José Manuel Polo [facility] M.D.; Tech1 Reason for ordering with alerts: Clinical consideration given -- 11:01/13/2021 José Manuel Polo M.D.[Electronically signed by José Manuel Polo M.D. (17:48 01/13/2021)][Electronically signed by Estrada Riddle R.N. (19:01/13/2021)][Electronically locked by Estrada Riddle R.N. (19:01/13/2021)] Name Value Range Interpretation Code Description Data Alysa rce(s) Supporting Document(s) ID Date Data Source [id number] 01/13/2021 11:08:00 AM EDT [facility] 1 Medication Reconciliation Report [facility] Emergency Department [address] [place] [address] Phone #: [phone]- [phone] 01/13/2021 11:07 Patient: MADISON [facility]Z [id number] Sex: F : 1955 Age: 65yWeight: 63.5 kgHeight/Length: 61 in.BMI: 26.5ALLERGIES: Amoxicillin, Codeine Sulfate, Sulfa Antibiotics, ValiumThe patient's Home Medications are listed below:THE FOLLOWING MEDICATIONS NEED TO BE RECONCILED: Escitalopram Oxalate Oral 20 mg, daily Omeprazole Oral 40 mg, daily Xanax Oral (1 mg), 4x a day, prnThe source(s) of the original Home Medication information:Not obtained.The following Medications were given to the patient in the Emergency Department:ASPIRIN CHEWABLE 81 MG [PO] PO 162 mg, administered: 11:50 01/13/2021Metoprolol [PO] PO 25 mg, administered: 13:16 1Clonidine [PO] PO 0.1 mg, administered: 14:10 01/13/2021lonidine [PO] PO 0.1 mg, administered: 15:45 01/13/2021The following Medications were prescribed to the patient:losartan 50 mg tablet Take 1 tablet once a day for 30 days -- Dispense 30 tablet. Refills: 2. Substitutionpermitted.Pharmacy - [id number] - [id number] ; [place], [place] [id number]. Phone: . -- José Manuel Polo M.D. Name Value Range Interpretation Code Description Data Alysa rce(s) Supporting Document(s) ID Date Data Source [id number] 01/13/2021 11:08:00 AM EDT [facility] 1 Medication Administration Record [facility] Emergency Department [address] [place] [address] Phone #: ext- [phone] 01/13/2021 11:07 Patient: MADISON RODRÍGUEZ Sex: F : 1955 Age: 65yWeight: 63.5 kgHeight/Length: 61 inBMI: 26.5ALLERGIES: Amoxicillin, Valium, Codeine Sulfate, Sulfa Antibiotics Date/Time Medication Administered Medication OrderedGiven ASPIRIN CHEWABLE 81 MG [PO] Aspirin PO Chewable 81 mg 71856:50 01/13/2021 Dose: 162 mg Tablets PO mgSorbEstrada hernandez, R.N.Given METOPROLOL [PO] Metoprolol PO 25 mg13:16 01/13/2021 Dose: 25 mg Tablets Estrada Lemus, R.N.Given CLONIDINE [PO] cloNIDine PO 0.1 mg14:10 01/13/2021 Dose: 0.1 mg Tablets BECKYorbEstrada hernandez R.N.Given CLONIDINE [PO] cloNIDine PO 0.1 mg15:45 01/13/2021 Dose: 0.1 mg Tablets Estrada Lemus, R.N. Name Value Range Interpretation Code Description Data Alysa rce(s) Supporting Document(s) ID Date Data Source [id number] 01/13/2021 11:08:00 AM EDT [facility] 1 General Instructions [facility] Emergency Department [address] [place] [address] Phone #: ext- [phone] 01/13/2021 11:07 Patient: MADISON [id number] Sex: F : 1955 Age: 65yChest wall painAnxiety reaction. No hyperventilation.Essential hypertension.INSTRUCTIONSNo strenuous activity until released. Rest until released.Avoid stimulants (such as cigarettes, coffee, cold medicines, sinus medicines, street drugs). Follow a lowsalt diet and low cholesterol diet. Do not smoke. No alcohol.Warnings: Further evaluation is necessary in order to conduct further tests (CHECK YOUR BLOODPRESSURE). It is very important to follow up with a healthcare provider.GENERAL WARNINGS: Return or contact your physician immediately if your condition worsens orchanges unexpectedly, if not improving as expected, or if other problems arise. SPECIFICALLY, return ifyou develop chest, neck, jaw, shoulder, arm, or back pain, difficulty breathing, a fluttering sensation in yourchest, lightheadedness, fainting, excessive fatigue, or sudden sweating.Prescription Medications:losartan 50 mg tablet Take 1 tablet once a day for 30 days -- Dispense 30 tablet. Refills: 2. Substitutionpermitted.Pharmacy - [facility] #24 - [address] ; [place], [place] [id number]. .Follow-up:Follow up with your healthcare provider in three days even if well. Call for an appointment. Reason forreferral: evaluation and treatment. Mohan mmary of care provided to patient via paper. Follow up with acardiologist in three days even if well. Call for an appointment. Reason for referral: evaluation, treatmentand STRESS TEST. Summary of care provided to patient via paper.Understanding of the discharge instructions verbalized by patient. Expected course of illness, dischargeinstructions, activity level, diet, prescriptions x1, follow-up appointment and risks and benefits of treatmentreviewed with patient and understanding verbalized. Agrees to plan of care.Follow-up with: Danilo Hansen MD, Cardiology, , [address] [place] [address], [phone] Follow up in three days even if well. Call for an appointment. Reason for referral: evaluation, treatmentand STRESS TEST. Summary of care provided to patient via paper. 2 General Instructions [facility] Emergency Department [address] [place] [address] Phone #: ext- [phone] 01/13/2021 11:07 Patient: MADISON RODRÍGUEZ Sex: F : 1955 Age: 65y ADDITIONAL INFORMATIONChest Wall Pain: CostochondritisThe chest pain that you have had today is caused by costochondritis. This condition is caused by aninflammation of the cartilage joining your ribs to your breastbone. It's not caused by heart or lungproblems. Your healthcare team has made sure that the chest pain you feel is not from a lifethreatening cause of chest pain such as heart attack, collapsed lung, blood clot in the lung, tear in theaorta, or esophageal rupture. The inflammation may have been brought on by a blow to the chest,lifting heavy objects, intense exercise, or an illness that made you cough and sneeze a lot. It oftenoccurs during times of emotional stress. It can be painful, but it's not dangerous. It usually goes awayin 1 to 2 weeks. But it may happen again. Rarely, a more serious condition may cause symptomssimilar to costochondritis. That's why it's important to watch for the warning signs listed below.Home careFollow these guidelines when caring for yourself at home: If you feel that emotional stress is a cause of your condition, try to figure out the sources of that stress. It may not be obvious. Learn ways to deal with the stress in your life. This can include regular exercise, muscle relaxation, meditation, or simply taking time out for yourself. You may use acetaminophen, ibuprofen, or naproxen to control pain, unless another pain medicine was prescribed. If you have liver or kidney disease or ever had a stomach ulcer, talk with your healthcare provider before using these medicines. You can also help ease pain by using a hot, wet compress or heating pad. Use this with or 3 General Instructions [facility] Emergency Department [address] [place] [address] Phone #: ext- [phone] 01/13/2021 11:07 Patient: MADISON RODRÍGUEZ Sex: F : 1955 Age: 65y without a medicated skin cream that helps relieves pain. Do stretching exercise as advised by your provider. Typically rest is beneficial for the first few days. Avoid strenuous activity that worsens the pain. Take any prescribed medicines as directed.Follow-up careFollow up with your healthcare provider, or as advised.When to seek medical adviceCall your healthcare provider right away if any of these occur: A change in the type of pain. Call if it feels different, becomes more serious, lasts longer, or spreads into your shoulder, arm, neck, jaw, or back. Shortness of breath or pain gets worse when you breathe Weakness, dizziness, or fainting Cough with dark- colored sputum (phlegm) or blood Abdominal pain Dark red or black stools Fever of 100.4F (38C) or higher, or as directed by your healthcare provider [id number] [facility]. [address] [place] [address]. All rights reserved. This information is not intended as asubstitute for professional medical care. Always follow your healthcare professional's instructions.Anxiety ReactionAnxiety is the feeling we all get when we think something bad might happen. It is a normal responseto stress and usually causes only a mild reaction. When anxiety becomes more severe, itcan interfere with daily life. In some cases, you may not even be aware of what it is you're anxiousabout. There may also be a genetic link or it may be a learned behavior in the home.Both psychological and physical triggers cause stress reaction. It's often a response to fear oremotional stress, real or imagined. This stress may come from home, family, work, or socialrelationships.During an anxiety reaction, you may feel: Helpless 4 General Instructions [facility] Emergency Department [address] [place] [address] Phone #: ext- [phone] 01/13/2021 11:07 Patient: MADISON RODRÍGUEZ Sex: F : 1955 Age: 65y Nervous Depressed IrritableYour body may show signs of anxiety in many ways. You may experience: Dry mouth Shakiness Dizziness Weakness Trouble breathing Breathing fast (hyperventilating) Chest pressure Sweating Headache Nausea Diarrhea Tiredness Inability to sleep Sexual problemsHome care Try to locate the sources of stress in your life. They may not be obvious. These may include: o Daily hassles of life (such as traffic jams, missed appointments, or car troubles) o Major life changes, both good (new baby or job promotion) and bad (loss of job or loss of loved one) o Overload: feeling that you have too many responsibilities and can't take care of all of them at once o Feeling helpless or feeling that your problems are beyond what you're able to solve Notice how your body reacts to stress. Learn to listen to your body signals. This will help you 5 General Instructions [facility] Emergency Department [address] [place] [address] Phone #: ext- [phone] 01/13/2021 11:07 Patient: MADISON RODRÍGUEZ Sex: F : 1955 Age: 65y take action before the stress becomes severe. When you can, do something about the source of your stress. (Avoid hassles, limit the amount of change that happens in your life at one time and take a break when you feel overloaded). Unfortunately, many stressful situations can't be avoided. It is necessary to learn how to better manage stress. There are many proven methods that will reduce your anxiety. These include simple things like ex ercise, good nutrition, and adequate rest. Also, there are certain techniques that are helpful: o Relaxation o Breathing exercises o Visualization o Biofeedback o MeditationFor more information about this, consult your healthcare provider or go to a local bookstore josesito the many books and tapes available on this subject.Follow-up careIf you feel that your anxiety is not responding to self-help measures, contact your healthcare provideror make an appointment with a counselor. You may need short-term psychological counseling andtemporary medicine to help you manage stress.Call [phone] if any of these happen: Trouble breathing Confusion Drowsiness or trouble wakening Fainting or loss of consciousness Rapid heart rate Seizure New chest pain that becomes more severe, lasts longer, or spreads into your shoulder, arm, neck, jaw, or back 6 General Instructions [facility] Emergency Department [address] [place] [address] Phone #: [phone]- [phone] 01/13/2021 11:07 Patient: MADISON RODRÍGUEZ Sex: F : 1955 Age: 65yWhen to seek medical adviceCall your healthcare provider right away if any of these happen: Your symptoms get worse Severe headache not relieved by rest and mild pain reliever [phone] [employer] [place] [address]. All rights reserved. This information is not intended as asubstitute for professional medical care. Always follow your healthcare professional's instructions.Established High Blood PressureHigh blood pressure (hypertension) is a long-term (chronic) disease. Often healthcare providers don'tknow what causes it. But it can be caused by certain health conditions and medicines.If you have high blood pressure, you may not have any symptoms. If you do have symptoms, theymay include: Headache Dizziness Changes in your vision Chest pain Shortness of breathBut even without symptoms, high blood pressure that's not treated raises your risk for heart attack,heart failure, kidney disease, and stroke. High blood pressure is a serious health risk and shouldn't beignored.Blood pressure measurements are given as 2 numbers. Systolic blood pressure is the upper number.This is the pressure when the heart contracts. Diastolic blood pressure is the lower number. This isthe pressure when the heart relaxes between beats. You will see your blood pressure readingswritten together. For example, a person with a systolic pressure of 118 and a diastolic pressure of 78will have 118/78 written in the medical record. 7 General Instructions [facility] Emergency Department [address] [place] [address] Phone #: ext- [phone] 01/13/2021 11:07 Patient: MADISON RODRÍGUEZ Sex: F : 1955 Age: 65yBlood pressure is classified as normal, raised (elevated) or stage 1 or stage 2 high blood pressure: Normal blood pressure. Systolic of less than 120 and diastolic of less than 80 (120/80). Elevated blood pressure. Systolic of 120 to 129 and diastolic less than 80. Stage 1 high blood pressure. Systolic is 130 to 139 or diastolic between 80 to 89. Stage 2 high blood pressure. Systolic is 140 or higher or the diastolic is 90 or higher.Home careIf you have high blood pressure, follow these home care guidelines to help lower your blood pressure.If you are taking medicines for high blood pressure, these methods may reduce or end your need formedicines in the future. Start a weight-loss program if you are overweight. Cut back on how much salt you get in your diet. Here's how to do this: o Don't eat foods that have a lot of salt. These include olives, pickles, smoked meats, and salted potato chips. o Don't add salt to your food at the table. o Use only small amounts of salt when cooking. Start an exercise program. Talk with your healthcare provider about the type of exercise program that would be best for you. It doesn't have to be hard. Even brisk walking for 20 minutes 3 times a week is a good form of exercise. Don't take medicines that stimulate the heart. This includes many xwiq-lzq-lkwbquj cold and sinus decongestant pills and sprays, as well as diet pills. Check the warnings about high blood pressure on the label. Before buying any pogv-xdu-rugdvmx medicines or supplements, always ask the pharmacist about the product's possible interaction with your high blood pressure and your high blood pressure medicines. Stimulants such as amphetamine or cocaine could be deadly for someone with high blood pressure. Never take these. Limit how much caffeine you get in your diet. Switch to caffeine-free products. Stop smoking. If you are a long-time smoker, this can be hard. Talk with your healthcare provider about medicines and nicotine replacement options to help you. Also join a stop-smoking program . This makes it more likely that you will quit for good. Learn how to handle stress. This is an important part of any program to lower blood pressure. Learn about relaxation methods such as meditation, yoga, or biofeedback. 8 General Instructions [facility] Emergency Department [address] [place] [address] Phone #: ext- [phone] 01/13/2021 11:07 Patient: MADISON RODRÍGUEZ Sex: F : 1955 Age: 65y If your provider prescribed medicines, take them exactly as directed. Missing doses may cause your blood pressure get out of control. If you miss a dose, check with your healthcare provider or pharmacist about what to do. Think about buying an automatic blood pressure machine to check your blood pressure at home. Ask your provider for a recommendation. You can get one of these at most pharmacies.Using a home blood pressure monitorThe [place] [employer] Association advises the following guidelines for home blood pressure monitoring: Don't smoke or drink coffee for 30 minutes before taking your blood pr essure. Go to the bathroom before the test. Relax for 5 minutes before taking the measurement. Sit with your back supported (don't sit on a couch or soft chair). Keep your feet on the floor uncrossed. Place your arm on a solid flat surface (such as a table) with the upper part of the arm at heart level. Place the middle of the cuff directly above the bend of the elbow. Check the monitor's instruction manual for an illustration. Take multiple readings. When you measure, take 2 to 3 readings one minute apart and record all of the results. Take your blood pressure at the same time every day, or as your healthcare provider advises. Record the date, time, and blood pressure reading. Take the record with you to your next healthcare appointment. If your blood pressure monitor has a built-in memory, just take the monitor with you to your next appointment. Call your provider if you have several high readings. Don't be frightened by one high blood pressure readi ng. But if you get a few high readings, check in with your healthcare provider.Follow-up careYou will need to see your healthcare provider regularly. This is to check your blood pressure and tomake changes to your medicines. Make a follow-up appointment as directed. Bring the record of yourhome blood pressure readings to the appointment.Call [phone] you have any of these: Blood pressure of 180/120 or higher 9 General Instructions [facility] Emergency Department [address] [place] [address] Phone #: ext- [phone] 01/13/2021 11:07 Patient: MADISON RODRÍGUEZ Sex: F : 1955 Age: 65y Chest pain or shortness of breath Weakness of an arm or leg or one side of the face Problems speaking or seeingWhen to get medical adviceCall your healthcare provider right away if any of these occur: Severe headache Throbbing or rushing sound in the ears Nosebleed Sudden severe pain in your belly (abdomen) Extreme drowsiness, confusion, or fainting Dizziness or spinning feeling (vertigo) [id number] [employer] [place] [address], [place] [address]. All rights reserved. This information is not intended as asubstitute for professional medical care. Always follow your healthcare professional's instructions. You have been given the following additional information: Chest Wall Pain, Costochondritis Anxiety Reaction Hypertension, Established No strenuous activity until released. Rest until released.(Electronically signed by José Manuel Polo M.D. 01/13/2021 17:48) Name Value Range Interpretation Code Description Data Alysa rce(s) Supporting Document(s) ID Date Data Source [id number] 01/13/2021 11:08:00 AM EDT [facility] 1 Clinical Report - Nurses [facility] Emergency Department [address] [place] [address] Phone #: ext- [phone] 01/13/2021 11:07 Patient: MADISON RODRÍGUEZ Sex: F : 1955 Age: 65yTRIAGEArrived by private vehicle. Historian: patient. Accompanied by family.Acuity: LEVEL 3.Chief Complaint: CHEST PAIN and SHORTNESS OF BREATH.Alert. No acute distress.Onset. (2 days). ( PT reports chest heaviness for the past 2 days that comes and goes. She has also hadmild SOB. She was treated for a sinus infection last week and finished a zpack yesterday. She is supposedto start a different antibiotic today but has not picked it up yet. Pt states she also has anxiety and panicdisorder and is unsure if that is causing the chest heaviness.). She has had nausea and a cough.Treatment TRANSITION ADVISOR:Seen within the last 30 days in a clinic; seen for different problems; treatment- antibiotic.SEPSIS SCREEN: SIRS SCREEN NEGATIVE. SEPSIS SCREEN NEGATIVE. No suspected or confirmedsigns of infection present.MEHDI COMA SCORE: 15- eyes open- spontaneous (4); best verbal response- oriented (5); bestmotor response- obeys commands (6). --11:18 01/13/21 Mattie Benz R.N.11:10 01/13/21. BP: 169/94. HR: 84. RR: 20. O2 saturation: 97%. Temp: 97.8 F. Pain level now 3/10.--11:18 01/13/21 Mattie Benz R.N.Weight: 63.5 kg stated. Height/Length: 61 inches Per Patient. BMI: 26.5. --11:17 01/13/21 Mattie Benz R.N.MedicationsOmeprazole Oral 40 mg, daily. --11:16 01/13/21 Mattie Benz R.N. Escitalopram Oxalate Oral 20 mg, daily. --11:01/13/21 Mattie Benz R.N. Xanax Oral (Tablet 1 mg), 4x a day as needed. --11:17 01/13/21 Mattie Benz R.N.AllergiesSulfa Antibiotics. --11:16 01/13/21 Mattie Benz R.N.Codeine Sulfate. --11:01/13/21 Mattie Benz R.N.Valium. --11:01/13/21 Mattie Benz R.N.Amoxicillin. --11:01/13/21 Mattie Benz R.N.PROBLEMS:GERD. 2 Clinical Report - Nurses [facility] Emergency Department [address] [place] [address] Phone #: ext- [phone] 01/13/2021 11:07 [id number] Sex[facility] : 1955 Age: 65yDepression.Anxiety Reaction.Hiatal Hernia.GI Disease. --11:17 01/13/21 Mattie Benz R.N.ADDITIONAL SURGERIES:Cholecystectomy.Foot .Hand.Hysterectomy.Lense replacements both eyes.Tonsillectomy.Tubal Ligation. --11:01/13/21 Mattie Benz R.N.HistoryPAST MEDICAL HX: Immunizations: up-to-date. Denies current p regnancy.SOCIAL HX: Smoker- current status unknown (quit 1 year ago). No alcohol use or drug use. She wasoffered HIV testing but declined and hepatitis C testing but declined. She has not traveled outside the[place]Infectious disease exposure: The patient was not exposed to MRSA, VRE, CRE or Coronavirus. (pt had cdiff 2 years ago).SELF HARM ASSESSMENT: Self harm assessment was performed. The patient answered "no" to thequestion(s) "Have you recently felt down, depressed, or hopeless?", "Do you have thoughts of harming orkilling yourself?", "Do you have a plan for harming or killing yourself?", "Have you recently had thoughtsabout harming or killing others?", "Do you have any dangerous items in your possession?", "Have younoticed less interest or pleasure in doing things?", "Are you here because you tried to hurt yourself?" and"Have you ever tried to hurt yourself before today?".ABUSE ASSESSMENT: No report of abuse.NUTRITIONAL RISK ASSESSMENT: The nutritional risk assessment revealed no deficiencies.FUNCTIONAL ASSESSMENT: Functional assessment: no impairments noted.LEARNING NEEDS ASSESSMENT: The learning needs assessment revealed no barriers.FALL RISK ASSESSMENT: Fall risk assessment completed. No risk factors identified.SKIN INTEGRITY ASSESSMENT: Skin integrity risk assessment completed. No skin integrity riskidentified. --11:18 01/13/21 Mattie Benz R.N.InterventionsIdentification and allergy band on patient. To treatment room. --11:18 01/13/21 Mattie Benz R.N. 3 Clinical Report - Nurses [facility] Emergency Department [address] [place] [address] Phone #: ext- [phone] 01/13/2021 11:07 Patient: MADISON RODRÍGUEZ Sex: F : 1955 Age: 65yPHYSICAL MZIGCPHANE02:19 01/13/21. Ambulatory to room. ( pain in epigastric area).GENERAL / NEURO / PSYCH: Alert. Oriented X 4. Appears anxious.HEENT: Mucous membranes are pink.RESPIRATORY: Respirations not labored. Chest nontender. Breath sounds within normal limits.CVS: Heart sounds within normal limits. Pulses within normal limits. Capillary refill less than 2 seconds.GI / : Abdomen soft and nontender.EXTREMITIES: No lower extremity edema.SKIN: Skin is warm and dry. Normal skin turgor. Skin is non-tender. --11:24 01/13/21 Estrada RiddleRMarla.NURSING PROGRESS NOTESMonitoring of patient in place. EKG time: (11:02 01/13/2021). EKG was performed by a tech and shownto the ED physician. Patient gowned. Reassurance given. Two patient identifiers checked. Call lightplaced in reach. Patient ready for evaluation- ED physician notified. --11:18 01/13/21 Mattie Benz R.N. 11:40 01/13/21. BP: 182/91. HR: 89. RR: 14. O2 saturation: 96%. --11:40 01/13/21 [place] [address] 11:50 01/13/2021 ASPIRIN CHEWABLE 81 MG PO Tablets 162 mg given. Allergies verified and confirmed 5 rights. Information reviewed with patient including reason for taking this medication, signs of allergic reaction and precautions. Verbalizes understanding. --11:50 01/13/21 Estrada Riddle RNeelimaN. 12:07 01/13/21. BP: 168/87. HR: 82. RR: 17. O2 saturation: 97%. --12:07 01/13/21 [facility] Tech 12:38 01/13/21. BP: 177/90. HR: 85. RR: 28. O2 saturation: 95%. --12:38 01/13/21 [facility] Tech1 13:07 01/13/21. BP: 191/99. HR: 92. RR: 15. O2 saturation: 96%. --13:07 01/13/21 [facility] Tech1 13:16 01/13/2021 Metoprolol PO Tablets 25 mg given. Allergies verified and confirmed 5 rights. Information reviewed with patient including reason for taking this medication, signs of allergic reaction and precautions. Verbalizes understanding. --13:16 01/13/21 Estrada Riddle R.N. 14:04 01/13/21. BP: 174/108. HR: 78. RR: 25. O2 saturation: 99%. --14:04 01/13/21 [facility] Tech1 14:10 01/13/2021 Clonidine PO Tablets 0.1 mg given. Allergies verified and confirmed 5 rights. Information reviewed with patient including reason for taking this medication, signs of allergic reaction and precautions. Verbalizes understanding. --14:10 01/13/21 Estrada Riddle R.N. 4 Clinical Report - Nurses [facility] Emergency Department [address] [place] [address] Phone #: ext- [phone] 01/13/2021 11:07 Patient: MADISON RODRÍGUEZ Sex: F : 1955 Age: 65y 14:10 01/13/21. Reassurance given. Reassessment acuity: LEVEL 3. The patient is calm and resting quietly. Overall patient status is the same- she states feels the same. GENERAL / NEURO / PSYCH: The patient reports anxiety is still present and worsening and currently moderate in severity (patient says the longer she stays here the worse her anxiety gets.). RESPIRATORY: No respiratory distress. Two patient identifiers checked. Call light placed in reach. Bed placed in lowest position. Brakes of bed on. Patient ready for evaluation- ED physician notified. --14:12 01/13/21 Estrada Riddle R.N. 14:43 01/13/21. BP: 187/100. HR: 73. RR: 17. O2 saturation: 96%. --14:43 01/13/21 [facility] Tech1 15:07 01/13/21. BP: 185/106. HR: 72. RR: 16. O2 saturation: 98%. --15:07 01/13/21 [place] [address] 15:34 01/13/21. BP: 184/114. HR: 88. RR: 22. O2 saturation: 94%. --15:34 01/13/21 [place] [address] 15:35 01/13/21. BP: 150/100 taken on the left arm, manually, while sitting. MAP: 116. HR: 84. --15:36 01/13/21 Estrada Riddle R.NNeelima 15:36 01/13/21. Reassessment acuity: LEVEL 3. The patient reports no complaints, she is calm and resting quietly and she has had no adverse reaction. Overall patient status is the same- she states feels the same. GENERAL / NEURO / PSYCH: The patient reports anxiety that is moderate in severity. --15:36 01/13/21 Estrada Riddle R.NNeelima 15:45 01/13/2021 Clonidine PO Tablets 0.1 mg given. Allergies verified and confirmed 5 rights. Information reviewed with patient including reason for taking this medication, signs of allergic reaction and precautions. Verbalizes understanding. --15:45 01/13/21 Estrada Riddle RNeelimaN. 16:07 01/13/21. HR: 77. RR: 16. O2 saturation: 97%. --16:07 01/13/21 [place] [address].DISPOSITION / DISCHARGE 16:58 01/13/21. BP: 147/87. HR: 81. RR: 17. O2 saturation: 99%. Temp: 98.1 F. Pain level now 0/10. --16:58 01/13/21 [place] [address] Departure time: 17:06 01/13/2021. Condition at departure: improved and stable. The goals identified in the patient's plan of care were met. Fall risk assessment completed. Risk factors identified include patient age greater than 65 years. No learning barriers present. Discharge instructions provided and reviewed with the patient. Reviewed warnings. Reviewed medication(s) side effects, precautions, dosing and course information. Prescription(s) sent electronically to pharmacy. Treatments reviewed. Reviewed referral to a heel turner and primary care physician. Activity restrictions (rest) reviewed. Patient verbalized understanding. Written instructions provided in Bengali. The patient was discharged by the 5 Clinical Report - Nurses [facility] Emergency Department [address] [place] [address] Phone #: ext- [phone] 01/13/2021 11:07 Patient: MADISON RODRÍGUEZ Sex: F : 1955 Age: 65y physician. She was discharged home. She left ambulatory and via private vehicle. Patient driving. --17:06 01/13/21 Estrada Riddle R.N.Locked/Released at 01/13/2021 19:01 by Estrada Riddle R.N. Name Value Range Interpretation Code Description Data Alysa rce(s) Supporting Document(s) ID Date Data Source [id number] 01/13/2021 11:08:00 AM EDT [facility] 1 Clinical Report - Physicians/Mid Levels [facility] Emergency Department [address] [place] [address] Phone #: ext- [phone] 01/13/2021 11:07 Patient: MADISON RODRÍGUEZ Sex: F : 1955 Age: 65y Time Seen: 11:15 01/13/2021; initial patient contact. Arrived- By private vehicle. Historian- patient. Disposition decision: 16:55 01/13/2021.HISTORY OF PRESENT ILLNESS Chief Complaint: CHEST PAIN. It is described as sharp and it is described as located in the central chest area. No radiation. This started 5 days ago and is now gone. It has been intermittent and waxing/waning. Onset during rest. At its maximum, severity described as modera te and 5 / 10. When seen in the E.D., it was gone and severity described as 0 / 10. Modifying factors- worsened by movement. Relieved by rest. The patient has had mild associated nausea. No vomiting or diaphoresis. She has had mild difficulty breathing at rest. (pt has been more anxious lately, believes it's her anxiety, took some Xanax TRANSITION ADVISOR; went to 5 days ago for this and they told her it was sinusitis and was prescribed Z-pastor). Similar symptoms previously. None. Recent medical care: The patient was seen recently at another facility in a clinic. ( UC 5 days ago, told it was sinusitis, prescribed Z-pastor).REVIEW OF SYSTEMSNo fever, chills, pedal edema, calf pain or fainting episodes. No headache, sore throat, blurred vision,abdominal pain or black stools. No difficulty with urination, skin rash, enlarged lymph nodes, joint pain orbloody stools. The patient has had a mild nonproductive cough. All other systems reviewed and arenegative.PAST HISTORYSee nurses notes. Problems: Hypertension. Panic Attack. GERD. Depression. Anxiety Reaction. Hiatal Hernia. Additional Surgeries: Cholecystectomy. Foot . Hand. Hysterectomy. 2 Clinical Report - Physicians/Mid Levels [facility] Emergency Department [address] [place] [address] Phone #: ext- [phone] 01/13/2021 11:07 Patient: MADISON RODRÍGUEZ Sex: F : 1955 Age: 65y Lense replacements both eyes. Tonsillectomy. Tubal Ligation. Medications: Xanax Oral (Tablet 1 mg), 4x a day as needed. Escitalopram Oxalate Oral 20 mg, daily. Omeprazole Oral 40 mg, daily. Allergies: Amoxicillin. Codeine Sulfate. Sulfa Antibiotics. Valium.SOCIAL HISTORYFormer smoker, end date 2019. No alcohol use or drug use.ADDITIONAL NOTESThe nursing notes have been reviewed with agreement regarding the chief complaint, HPI, ROS, PMH andpatient medications and allergies.PHYSICAL EXAMVital Signs: 01/13/2021 11:40 BP: 182/91. MAP: 121. HR: 89. RR: 14. O2 saturation: 96%.01/13/2021 11:10 BP: 169/94. MAP: 119. HR: 84. RR: 20. O2 saturation: 97%. Temp: 97.8 F. Have beenreviewed. Oxygen saturation normal.Appearance: Alert. Oriented X3. No acute distress. Anxious.Eyes: Pupils equal, round and reactive to light. Eyes normal inspection.ENT: Nose normal. Pharynx normal.Neck: Normal inspection. Neck supple.CVS: Normal heart rhythm and rate. Heart sounds normal. Pulses normal.Respiratory: No respiratory distress. Chest pain reproducible with palpation of the sternum. Painlessinspiration. Breath sounds normal.Abdomen: Soft and nontender. Bowel sounds normal. No organomegaly. No mass. Femoral pulsesequal.Back: Normal external inspection.Skin: Skin warm and dry. Normal skin color. No rash. Normal skin turgor.Extremities: Extremities exhibit normal ROM. No lower extremity edema. No calf tenderness. No lowerextremity edema.Neuro: Oriented X 3. No motor deficit. No sensory deficit.LABS, X-RAYS, AND EKGEKG: No acute process. No acute ischemia. Normal EKG. Normal sinus rhythm. Rate: 84/MIN.Normal ST and T waves. EKG unchanged when compared with prior EKG. (09-08-2018). The study hasbeen interpreted contemporaneously by me. The EKG appears to be a good tracing. Interpretation time: 3 Clinical Report - Physicians/Mid Levels [facility] Emergency Department [address] [place] [address] Phone #: ext- [phone] 01/13/2021 11:07 Patient: MADISON RODRÍGUEZ Sex: F : 1955 Age: 65y11:14 01/13/2021. Views: AP (portable). Technique: good. The X-rays were interpreted by theradiologist. Interpretation time: 12:04 01/13/2021.Laboratory Tests: Laboratory tests have been ordered, with results reviewed and considered in themedical decision making process.Troponin-T: (JASPREET: 01/13/2021 15:13) ( [facility] 01/13/2021 15:42) Final results Test Result Flag Units (Reference) TROPONIN T <0.01 NG/ML (0.00 - 0.10) TROPONIN T0.1 ng/ml Recommended as the clinical threshold value forTroponin T.CBC w Diff: (JASPREET: 01/13/2021 12:02) ( [facility] 01/13/2021 12:15) Final results Test Result Flag Units (Reference) CBC W/AUTOMATED D IFF COMPLETE BLOOD COUNT WBC 10.0 10/uL (4.2 - 11.0) RBC 5.08 10/uL (4.20 - 5.40) HEMOGLOBIN 15.5 g/dL (12.0 - 16.0) HEMATOCRIT 45.3 % (37.0 - 47.0) MCV 89.2 fL (81.0 - 101) MCH 30.5 pg (27.0 - 34.0) MCHC 34.2 g/dL (31.0 - 36.0) RDW 14.0 % (11.5 - 14.5) PLATELETS 323 10/uL (150 - 450) MPV 10.1 fL (7.4 - 10.4) NEUT 48.3 % (37.0 - 80.0) LYMPH 44.8 H % (25.0 - 40.0) MONO 5.4 % (3.0 - 8.0) EOS 0.8 % (0.0 - 7.0) BASO 0.3 % (0.0 - 2.5) %IG 0.4 H % (0.0 - 0.0) %NRBC 0.0 % (0.0 - 0.0) #NEUT 4.84 10/uL (2.00 - 6.90) #LYMPH 4.49 H 10/uL (0.60 - 3.40) #MONO 0.54 10/uL (0.00 - 0.90) #EOS 0.08 10/uL (0.00 - 0.70) #BASO 0.03 10/uL (0.00 - 0.20) #IG 0.04 10/uL (0.00 - 0.10) #NRBC 0.00 10/uL (0.00 - 0.00) MANUAL DIFF NOT INDICATED RBC MORPH NOT INDICATEDCMP: (JASPREET: 01/13/2021 12:02) ( MsgRcvd 01/13/2021 12:57) Final results Test Result Flag Units (Reference) COMPREHENSIVE METABOLIC PANEL COMPREHENSIVE METABOLIC PANEL SODIUM 141 mEq/L (134 - 153) POTASSIUM 4.0 mEq/L (3.6 - 5.0) CHLORIDE 107 mEq/L (98 - 107) CO2 24 MEQ/L (22 - 30) GLUCOSE 97 MG/DL (70 - 99) BUN 7 MG/DL (7 - 21) CREATININE 1.0 MG/DL (0.7 - 1.5) BUN/CREAT 7 L (8 - 27) TOTAL PROTEIN 6.6 G/DL (6.3 - 8.2) ALBUMIN 4.3 G/DL (3.9 - 5.0) 4 Clinical Report - Physicians/Mid Levels [facility] Emergency Department [address] [place] [address] Phone #: ext- [phone] 01/13/2021 11:07 Patient: MADISON RODRÍGUEZ Sex: F : 1955 Age: 65y GLOBULIN 2.3 L GM/DL (2.4 - 3.2) A/G RATIO 1.9 (0.8 - 2.0) CALCIUM 9.4 MG/DL (8.4 - 10.2) TOTAL BILI <0.7 MG/DL (0.2 - 1.3) ALKALINE PHOS 86 U/L (38 - 126) SGOT/AST 15 U/L (5 - 40) SGPT/ALT 12 U/L (7 - 56) ANION GAP 10.0 mmol/L (8.0 - 16.0) AGE 65 yrs NON-AA GFR 59 mL/min AFR AMER GFR >60 Male GFR Interprentation 20-49 yrs >60 mL/min Dlvodz20-30 yrs >56 mL/min Normal 60-69 yrs >49 mL/min Normal 70-79yrs>42 mL/min Normal 80 and above >35 mL/min Normal Female GFRInterpretation 20-39 yrs >60 mL/min Normal 40-49 yrs >58 mL/minNormal 50-59 yrs >51 mL/min Normal 60-69 yrs >45 mL/min Tiucpr29-24 yrs >39 mL/min Normal 80 and above >32 mL/min NormalLipase: (JASPREET: 01/13/2021 12:02) ( [facility] 01/13/2021 12:56) Final results Test Result Flag Units (Reference) LIPASE 24 U/L (13 - 60)Troponin-T: (JASPREET: 01/13/2021 12:02) ( [facility] 01/13/2021 12:47) Final results Test Result Flag Units (Reference) TROPONIN T <0.01 NG/ML (0.00 - 0.10) TROPONIN T0.1 ng/ml Recommended as the clinical threshold value forTroponin T.BNP: (JASPREET: 01/13/2021 12:02) ( [facility] 01/13/2021 12:55) Final results Test Result Flag Units (Reference) BNP 57 PG/ML (0 - 125)Chest Portable 1 View: (JASPREET: 01/13/2021 11:38) ( [facility] 01/13/2021 16:50) In Progress Exam [place] [address] PHONE: [phone] FAX: [phone] Name .................. : ANNE Lopez Acct Number.................. : [id number] ROOM. ................. : [address] Number ................... : [id number] Stay type ............. : E/R Discharge Date......... ... : Admit Date ......... : 01/13/21 Admit Phys .................... : MELANI FERRARI Date of ....... : 1955 Family Phys ................... : Phone .................. : [phone] Age ................................ : 65 Film# .................. .:[id number] Sex ................................. : F Unsigned transcriptions are preliminary reports and do not represent a medical or legal document CHEST PORTABLE [id number] COMPLETE:01/13/21 11:38 Reason(s): Chest Pain PORTABLE CHEST SINGLE VIEW 12:11 PM 5 Clinical Report - Physicians/Mid Levels [facility] Emergency Department [address] [place] [address] Phone #: ext- [phone] 01/13/2021 11:07 Patient: MADISON RODRÍGUEZ Sex: F : 1955 Age: 65y HISTORY: Chest pain COMPARISON: None. FINDINGS: Mediastinal and hilar structures are normal. Cardiac silhouette is unremarkable. Lungs are clear. No pulmonary edema. No pleural effusions or pneumothorax. IMPRESSION: Normal exam. Electronically Reviewed and Signed By DCTNAME , SIGNDATE, SCB Transcribe Initials: SSR, Transcribe Date: 01/13/21 12:27, Dictation Date: <<REPDIST>> Page 1 of 1.PROGRESS AND PROCEDURESCourse of Care: 13:06 01/13/21. workup all in and reviewed and nml; CXR nml; BP numbers elevated, willaddress; will repeat troponin in 3 hrs 15:19 01/13/21. waiting for repeat troponin, meanwhile, monitoring BP and still high post-metoprolol 25 mg po and post- clonidine 0.1 mg po; will repeat clonidine 0.1 mg po 16:53 01/13/21. 2nd troponin is neg.; pt has Hx of HTN and she states that it is high when she is stressed; will prescribe Losartan 25 mg QD and she will f/u w [facility]; pt has chest wall pain, d/c instructions given, pt understands and agrees; will refer to cardiology for stress test. Patient counseled in person regarding the patient's stable condition, test results, diagnosis and need for follow-up. Patient agrees with plan of care. Disposition: Condition: good and stable. Discharge decision based on the following: patient's condition is stable; patient's condition is improved; patient is ambulatory; patient is active; patient drinking fluids; patient eating; patient's pain is controlled; patient's exam is improved; no abnormal test results; improving condition on multiple repeat evaluations; social support is good; transportation is available; follow-up is available; clinical impression is consistent with outpatient treatment. 6 Clinical Report - Physicians/Mid Levels [facility] Emergency Department [address] [place] [address] Phone #: ext- [phone] 01/13/2021 11:07 Patient: MADISON RODRÍGUEZ Sex: F : 1955 Age: 65yCLINICAL IMPRESSION Chest wall pain Anxiety reaction. No hyperventilation. Essential hypertension.INSTRUCTIONS No strenuous activity until released. Rest until released. Avoid stimulants (such as cigarettes, coffee, cold medicines, sinus medicines, street drugs). Follow a low salt diet and low cholesterol diet. Do not smoke. No alcohol. Warnings: Further evaluation is necessary in order to conduct further tests (CHECK YOUR BLOOD PRESSURE). It is very important to follow up with a healthcare provider. GENERAL WARNINGS: Return or contact your physician immediately if your condition worsens or changes unexpectedly, if not improving as expected, or if other problems arise. SPECIFICALLY, return if you develop chest, neck, jaw, shoulder, arm, or back pain, difficulty breathing, a fluttering sensation in your chest, lightheadedness, fainting, excessive fatigue, or sudden sweating. Prescription Medications: losartan 50 mg tablet Take 1 tablet once a day for 30 days -- Dispense 30 tablet. Refills: 2. Substitution permitted. Pharmacy - [id number] - [id number] ; [place], [place] [id number]. . Follow-up: Follow up with your healthcare provider in three days even if well. Call for an appointment. Reason for referral: evaluation and treatment. Summary of care provided to patient via paper. Follow up with a heel turner in three days even if well. Call for an appointment. Reason for referral: evaluation, treatment and STRESS TEST. Summary of care provided to patient via paper. Understanding of the discharge instructions verbalized by patient. Expected course of illness, discharge instructions, activity level, diet, prescriptions x1, follow-up appointment and risks and benefits of treatment reviewed with patient and understanding verbalized. Agrees to plan of care. Follow-up with: Danilo Hansen MD, Cardiology, , [address] [place] [address], [id number] Follow up in three days even if well. Call for an appointment. Reason for referral: evaluation, treatment and STRESS TEST. Summary of care provided to patient via paper. 7 Clinical Report - Physicians/Mid Levels [facility] Emergency Department [address] [place] [address] Phone #: ext- [phone] 01/13/2021 11:07 Patient: [id number] Sex: F : 1955 Age: 65y(Electronically signed by José Manuel Polo M.D. 01/13/2021 17:48) Name Value Range Interpretation Code Description Data Alysa rce(s) Supporting Document(s) ID Date Data Source [id number] 01/13/2021 03:42:00 PM EDT [facility] Name Value Range Interpretation Code Description Data Alysa rce(s) Supporting Document(s) TROPONIN T <0.01 NG/ML 0.00 - 0.10 [facility] TROPONIN T0.1 ng/ml Recommended as the c linical threshold value forTroponin T. ID Date Data Source [id number] 01/13/2021 12:56:00 PM EDT [facility] Name Value Range Interpretation Code Description Data Alysa rce(s) Supporting Document(s) COMPREHENSIVE METABOLIC PANEL [facility] COMPREHENSIVE METABOLIC PANEL Sodium [Moles/volume] in Serum or Plasma 141 mEq/L 134 - 153 [facility] Potassium [Moles/volume] in Serum or Plasma 4.0 mEq/L 3.6 - 5.0 [facility] Chloride [Moles/volume] in Serum or Plasma 107 mEq/L 98 - 107 [facility] Carbon dioxide, total [Moles/volume] in Serum or Plasma 24 MEQ/L 22 - 30 [facility] Glucose [Mass/volume] in Serum or Plasma 97 MG/DL 70 - 99 [facility] BUN 7 MG/DL 7 - 21 [facility] Creatinine [Mass/volume] in Serum or Plasma 1.0 MG/DL 0.7 - 1.5 [facility] BUN/CREAT 7 8 - 27 [facility] [facility] Protein [Mass/volume] in Serum or Plasma 6.6 G/DL 6.3 - 8.2 [facility] Albumin [Mass/volume] in Serum or Plasma 4.3 G/DL 3.9 - 5.0 [facility] Globulin [Mass/volume] in Serum by calculation 2.3 GM/DL 2.4 - 3.2 L [facility] A/G RATIO 1.9 0.8 - 2.0 [facility] Calcium [Mass/volume] in Serum or Plasma 9.4 MG/DL 8.4 - 10.2 [facility] Bilirubin.total [Mass/volume] in Serum or Plasma <0.7 MG/DL 0.2 - 1.3 [facility] Alkaline phosphatase [Enzymatic activity/volume] in Serum or Plasma 86 U/L 38 - 126 [facility] Aspartate aminotransferase [Enzymatic activity/volume] in Serum or Plasma 15 U/L 5 - 40 [facility] Alanine aminotransferase [Enzymatic activity/volume] in Seru m or Plasma 12 U/L 7 - 56 [facility] Anion gap 3 in Serum or Plasma 10.0 mmol/L 8.0 - 16.0 [facility] AGE 65 yrs [facility] NON-AA GFR 59 [facility] AMER GFR >60 [facility] Male GFR In terprentation 20-49 yrs >60 mL/min Normal 50-59 yrs >56 mL/min Normal 60-69 yrs >49 mL/min Normal 70-79yrs >42 mL/min Normal 80 and above >35 mL/min Normal Female GFR Interpretation 20-39 yrs >60 mL/min Normal 40-49 yrs >58 mL/min Normal 50-59 yrs >51 mL/min Normal 60-69 yrs >45 mL/min Normal 70-79 yrs >39 mL/min Normal 80 and above >32 mL/min Normal ID Date Data Source [id number] 01/13/2021 12:56:00 PM EDT [facility] Name Value Range Interpretation Code Description Data Alysa rce(s) Supporting Document(s) Lipase [Enzymatic activity/volume] in Serum or Plasma 24 U/L 13 - 60 [facility] ID Date Data Source [id number] 01/13/2021 12:54:00 PM EDT [facility] Name Value Range Interpretation Code Description Data Alysa rce(s) Supporting Document(s) BNP 57 PG/ML 0 - 125 [facility] ID Date Data Source [id number] 01/13/2021 12:47:00 PM EDT [facility] Name Value Range Interpretation Code Description Data Alysa rce(s) Supporting Document(s) TROPONIN T <0.01 NG/ML 0.00 - 0.10 [facility] TROPONIN T0.1 ng/ml Recommended as the c linical threshold value forTroponin T. ID Date Data Source [id number] 01/13/2021 12:15:00 PM EDT [facility] Name Value Range Interpretation Code Description Data Alysa rce(s) Supporting Document(s) CBC W/AUTOMATED DIFF [facility] COMPLETE BLOOD COUNT Leukocytes [#/volume] in Blood by Automated count 10.0 10^3/uL 4.2 - 11.0 [facility] Erythrocytes [#/volume] in Blood by Automated count 5.08 10^6/uL 4. 20 - 5.40 [facility] Hemoglobin [Mass/volume] in Blood 15.5 g/dL 12.0 - 16.0 [facility] Hematocrit [Volume Fraction] of Blood by Automated count 45.3 % 3 7.0 - 47.0 [facility] Erythrocyte mean corpuscular volume [Entitic volume] by Auto mated count 89.2 fL 81.0 - 101 [facility] Erythrocyte mean corpuscular hemoglobin [Entitic mass] by Automated count 30.5 pg 27.0 - 34.0 [facility] Erythrocyte mean corpuscular hemoglobin concentration [Mass/volume] by Automated count 34.2 g/dL 31.0 - 36.0 [facility] Erythrocyte distribution width [Ratio] by Automated count 14.0 % 11.5 - 14.5 [facility] Platelets [#/volume] in Blood by Automated count 323 10^3/uL 150 - 45 0 [facility] Platelet mean volume [Entitic volume] in Blood by Automated count 10.1 fL 7.4 - 10.4 [facility] Neutrophils/100 leukocytes in Blood by Automated count 48.3 % 37. 0 - 80.0 [facility] Lymphocytes/100 leukocytes in Blood by Manual count 44.8 % 25.0 - 40.0 H [facility] Monocytes/100 leukocytes in Blood by Automated count 5.4 % 3.0 - 8.0 [facility] Eosinophils/100 leukocytes in Blood by Automated count 0.8 % 0.0 - 7.0 [facility] Basophils/100 leukocytes in Blood by Automated count 0.3 % 0.0 - 2.5 [facility] %IG 0.4 % 0.0 - 0.0 [facility] %[facility] 0.0 % 0.0 - 0.0 [facility] al Neutrophils [#/volume] in Blood by Automated count 4.84 10^3/uL 2.00 - 6.90 [facility] Lymphocytes [#/volume] in Blood by Automated count 4.49 10^3/uL 0.60 - 3.40 H [facility] Monocytes [#/volume] in Blood by Automated count 0.54 10^3/uL 0.00 - 0.90 [facility] Eosinophils [#/volume] in Blood by Automated count 0.08 10^3/uL 0.00 - 0.70 [facility] Basophils [#/volume] in Blood by Automated count 0.03 10^3/uL 0.00 - 0.20 [facility] #IG 0.04 10^3/uL 0.00 - 0.10 [facility] #NRBC 0.00 10^3/uL 0.00 - 0.00 [facility] MANUAL DIFF NOT INDICATED [facility] RBC MORPH NOT INDICATED [facility] ID Date Data Source [id number] 12/15/2020 12:00:00 AM EDT [facility] Name Value Range Interpretation Code Description Data Alysa rce(s) Supporting Document(s) SARS-CoV2 Rapid Antigen Negative [facility] This lab was ordered by [facility] and reported by [facility]. ID Date Data Source TSH 11/01/2020 12:00:00 AM EDT eCW1 ([facility]) Name Value Range Interpretation Code Description Data Alysa rce(s) Supporting Document(s) 3.230 0.358-3.740 THYROID STIMULATING HORM ONE eCW1 ([facility]) ID Date Data Source Comprehensive Metabolic Profile (CMP) 11/01/2020 12:00:00 AM EDT eCW1 ([facility]) Name Value Range Interpretation Code Description Data Alysa rce(s) Supporting Document(s) 104 70-100 GLUCOSE, FASTING eCW1 ([facility]) 11 7-18 BLOOD UREA NITROGEN eCW1 ([facility]) 1.12 0.55-1.30 CREATININE FOR GFR eCW1 ([facility]) 51.7 >45 GLOMERULAR FILTRATION RATE eCW 1 ([facility]) 140 136-145 SODIUM LEVEL eCW1 ([facility]) 107 98-107 CHLORIDE LEVEL eCW1 ([facility]) 4.4 3.5-5.1 POTASSIUM SERUM eCW1 ([facility]) 15 7-37 AST/SGOT eCW1 ([facility]) 28 21-32 CARBON DIOXIDE LEVEL eCW1 ([facility]) 9.5 8.8-10.2 CALCIUM LEVEL eCW1 ([facility]) 7.0 6.4-8.2 TOTAL PROTEIN eCW1 ([facility]) 0.3 0.2-1.0 BILIRUBIN,TOTAL eCW1 ([facility]) 98 45-117 ALKALINE PHOSPHATASE eCW1 ([facility]) 34 12-78 ALT/SGPT eCW1 ([facility]) 3.7 3.2-5.2 ALBUMIN eCW1 ([facility]) 1.1 1.2-2.2 ALBUMIN/GLOBULIN RATIO eCW1 ([facility]) ID Date Data Source CPK CREATINE PHOSPHOKINASE 11/01/2020 12:00:00 AM EDT eCW1 ( [facility]) Name Value Range Interpretation Code Description Data Alysa rce(s) Supporting Document(s) 53 22-192 CPK CREATINE PHOSPHOKINASE eCW 1 ([facility]) ID Date Data Source CBC with Differential 11/01/2020 12:00:00 AM EDT eCW1 ([facility]) Name Value Range Interpretation Code Description Data Alysa rce(s) Supporting Document(s) 5.23 4.00-5.40 RED BLOOD COUNT eCW1 ([facility]) 11.2 4.0-10.0 WHITE BLOOD COUNT eCW1 ([facility]) 93.5 80.0-96.0 MEAN CORPUSCULAR VOLUME e CW1 ([facility]) 16.0 12.0-15.5 HEMOGLOBIN eCW1 ([facility]) 48.9 36.0-47.0 HEMATOCRIT eCW1 ([facility]) 32.7 32.0-36.5 MEAN CORPUSCULAR HGB CONC eCW1 ([facility]) 30.6 27.0-33.0 MEAN CORPUSCULAR HEMOGLOB IN eCW1 ([facility]) 13.5 11.5-14.5 RED CELL DISTRIBUTION WID TH eCW1 ([facility]) 319 150-450 PLATELET COUNT, AUTOMATED eCW1 ([facility]) 53.2 36.0-66.0 NEUTROPHILS % eCW1 ([facility]) 39.2 24.0-44.0 LYMPH % eCW1 ([facility]) 5.8 2.0-8.0 MONO % eCW1 ([facility]) 0.4 0.0-1.0 BASO % eCW1 ([facility]) 1.0 0.0-3.0 EOS % eCW1 ([facility]) 5.9 1.5-8.5 NEUTROPHILS # eCW1 ([facility]) 4.4 1.5-5.0 LYMPH # eCW1 ([facility]) 0.7 0.0-0.8 MONO # eCW1 ([facility]) 0.1 0.0-0.2 BASO # eCW1 ([facility]) 0.1 0.0-0.5 EOS # eCW1 ([facility]) Procedure Social History Code Duration Value Status Description Data Source(s ) Smoking 03/13/2021 12:00:00 AM EDT Former Smoker completed Former Smoker eCW1 ([facility]) Smoking 02/20/2021 12:00:00 AM EDT Former Smoker completed Former Smoker eCW1 ([facility]) Smoking 01/15/2021 12:00:00 AM EDT Former Smoker completed Former Smoker eCW1 ([facility]) Smoking 01/15/2021 12:00:00 AM EDT Former Smoker completed Former Smoker eCW1 ([facility]) Smoking 01/15/2021 12:00:00 AM EDT Former Smoker completed Former Smoker eCW1 ([facility]) Smoking 12/13/2020 12:00:00 AM EDT Former Smoker completed Former Smoker eCW1 ([facility]) Smoking 12/13/2020 12:00:00 AM EDT Former Smoker completed Former Smoker eCW1 ([facility]) Smoking 11/25/2020 12:33:53 PM EDT Ex-smoker (finding) complet ed Ex-smoker (finding) [place] (Timoteo Back MD [facility]) Smoking 11/25/2020 12:32:15 PM EDT Smokes tobacco daily (findi ng) completed Smokes tobacco daily (finding) [place] (Timoteo Back MD [facility]) Smoking 11/25/2020 11:21:20 AM EDT Smokes tobacco daily (findi ng) completed Smokes tobacco daily (finding) [place] (Timoteo Back MD [facility]) Smoking 11/25/2020 10:53:31 AM EDT Smokes tobacco daily (findi ng) completed Smokes tobacco daily (finding) [place] (Timoteo Back MD [facility]) Smoking 11/01/2020 12:00:00 AM EDT Former Smoker completed Former Smoker eCW1 ([facility]) Smoking 11/01/2020 12:00:00 AM EDT Former Smoker completed Former Smoker eCW1 ([facility]) Smoking 11/01/2020 12:00:00 AM EDT Former Smoker completed Former Smoker eCW1 ([facility]) Smoking 11/01/2020 12:00:00 AM EDT Former Smoker completed Former Smoker eCW1 ([facility]) Smoking 11/01/2020 12:00:00 AM EDT Former Smoker completed Former Smoker eCW1 ([facility]) Smoking 11/01/2020 12:00:00 AM EDT Former Smoker completed Former Smoker eCW1 ([facility]) Vital Signs ID Date Data Source UNK Name Value Range Interpretation Code Description Data Source(s) Body weight 156 [lb_av] 156 [lb_av] eCW1 ([facility]) Body height 61 [in_i] 61 [in_i] eCW1 ([facility]) Body mass index (BMI) [Ratio] 29.47 kg/m2 29.47 kg/m2 eCW1 ([facility]) Heart rate 105 /min 105 /min eCW1 ([facility]) Respiratory rate 20 /min 20 /min eCW1 ([facility]) Body temperature 96 [degF] 96 [degF] eCW1 ([facility]) Systolic blood pressure 142 mm[Hg] 142 mm[Hg] e CW1 ([facility]) Diastolic blood pressure 90 mm[Hg] 90 mm[Hg] eCW1 ([facility]) Body temperature 96.5 [degF] 96.5 [degF] eCW1 ( [facility]) Body weight 152 [lb_av] 152 [lb_av] eCW1 ([facility]) Systolic blood pressure 148 mm[Hg] 148 mm[Hg] e CW1 ([facility]) Diastolic blood pressure 100 mm[Hg] 100 mm[Hg] eCW1 ([facility]) Body height 61 [in_i] 61 [in_i] eCW1 ([facility]) Body mass index (BMI) [Ratio] 28.72 kg/m2 28.72 kg/m2 eCW1 ([facility]) Heart rate 105 /min 105 /min eCW1 ([facility]) Respiratory rate 20 /min 20 /min eCW1 ([facility]) Systolic blood pressure 160 mm[Hg] 160 mm[Hg] M EDENT ([facility]) Diastolic blood pressure 107 mm[Hg] 107 mm[Hg] MEDENT ([facility]) Oxygen saturation in Arterial blood by Pulse oximetry 96 % 96 % MEDENT ([facility]) Heart rate 103 /min 103 /min MEDENT ([facility]) Systolic blood pressure 156 mm[Hg] 156 mm[Hg] e CW1 ([facility]) Body weight 148 [lb_av] 148 [lb_av] eCW1 ([facility]) Body height 61 [in_i] 61 [in_i] eCW1 ([facility]) Body mass index (BMI) [Ratio] 27.96 kg/m2 27.96 kg/m2 eCW1 ([facility]) Heart rate 104 /min 104 /min eCW1 ([facility]) Respiratory rate 20 /min 20 /min eCW1 ([facility]) Diastolic blood pressure 100 mm[Hg] 100 mm[Hg] eCW1 ([facility]) Body temperature 96.8 [degF] 96.8 [degF] eCW1 ( [facility]) Body weight 150 [lb_av] 150 [lb_av] eCW1 ([facility]) Body height 61 [in_i] 61 [in_i] eCW1 ([facility]) Body mass index (BMI) [Ratio] 28.34 kg/m2 28.34 kg/m2 eCW1 ([facility]) Heart rate 115 /min 115 /min eCW1 ([facility]) Respiratory rate 20 /min 20 /min eCW1 ([facility]) Body temperature 97.8 [degF] 97.8 [degF] eCW1 ( [facility]) Systolic blood pressure 160 mm[Hg] 160 mm[Hg] e CW1 ([facility]) Diastolic blood pressure 90 mm[Hg] 90 mm[Hg] eCW1 ([facility]) Body weight 148 [lb_av] 148 [lb_av] eCW1 ([facility]) Body height 61 [in_i] 61 [in_i] eCW1 ([facility]) Body temperature 97.3 [degF] 97.3 [degF] eCW1 ( [facility]) Systolic blood pressure 122 mm[Hg] 122 mm[Hg] e CW1 ([facility]) Body mass index (BMI) [Ratio] 27.96 kg/m2 27.96 kg/m2 eCW1 ([facility]) Diastolic blood pressure 98 mm[Hg] 98 mm[Hg] eCW1 ([facility]) Heart rate 112 /min 112 /min eCW1 ([facility]) Respiratory rate 20 /min 20 /min eCW1 ([facility]) Systolic blood pressure 136 mm[Hg] 136 mm[Hg] M EDENT ([facility]) Diastolic blood pressure 73 mm[Hg] 73 mm[Hg] MEDENT ([facility]) Body weight 140.00 [lb_av] 140.00 [lb_av] MEDEN T ([facility]) Body temperature 98.3 [degF] 98.3 [degF] MEDENT ([facility]) Patient Treatment Plan of Care Planned Activity Planned Date Details Description Data Source (s) Amlodipine 5 MG Oral Tablet 02/20/2021 12:00:00 AM EDT eCW1 ([facility]) Amlodipine 5 MG Oral Tablet 02/20/2021 12:00:00 AM EDT eCW1 ([facility])
[2021-04-15] MEDS ORDERED: AMLO1TAB24 (13:27)
[2021-04-15] MEDS ORDERED: LOSA50TA88 (13:27)
[2021-04-15 14:06] LABS: HEMATOCRIT 47.5 % (36.0-47.0); HEMOGLOBIN 15.8 g/dl (12.0-15.5); MEAN CORPUSCULAR HEMOGLOBIN 30.3 pg (27.0-33.0); MEAN CORPUSCULAR HGB CONC 33.3 g/dl (32.0-36.5); MEAN CORPUSCULAR VOLUME 91.2 fl (80.0-96.0); PLATELET COUNT, AUTOMATED 364 10^3/uL (150-450); RED BLOOD COUNT 5.21 10^6/uL (4.00-5.40)
[2021-04-15 14:33] LABS: BILIRUBIN,DIRECT 0.1 MG/DL (0.0-0.2); BILIRUBIN,TOTAL 0.4 MG/DL (0.2-1.0); CALCIUM LEVEL 9.6 MG/DL (8.8-10.2); CREATININE FOR GFR 1.08 MG/DL (0.55-1.30); GLOMERULAR FILTRATION RATE 53.7 (>45); TOTAL PROTEIN 7.6 GM/DL (6.4-8.2)
[2021-04-15 14:35] LABS: LYMPHOCYTES 37 % (16-44); MONOCYTES 3 % (0-5); NEUTROPHILS 60 % (28-66); PLATELET ESTIMATE NORMAL (NORMAL)
[2021-04-15] MEDS ORDERED: ONDANSETRON 4MG/2ML VIAL IV ONE (17:25)
[2021-04-15] MEDS ORDERED: PANTOPRAZOLE 40MG VIAL (C9113 PER 1) IV ONE (17:25)
--- NOTE | 2021-04-15 17:53 | REP ---
INDICATION: epigastric pain. COMPARISON: 10/11/2015. TECHNIQUE: Frontal view chest, supine and erect abdomen. FINDINGS: There is no free air or obstruction. No dilated bowel loops are seen. Metallic clips are seen in the upper abdomen. Phleboliths are seen in the pelvis. The visualized osseous structures are unremarkable. Both lungs are clear. The heart is normal in size. There is mild calcification and tortuosity of the thoracic aorta. IMPRESSION: No free air or obstruction. Lungs are clear. <Electronically signed by Fernandez Cuenca > 04/15/21 1623
[2021-04-15] MEDS ORDERED: SIME180C25 PO (18:12)
[2021-04-15] MEDS ORDERED: PROM25TA12 PO (18:12)
[2021-04-15 18:17] VITALS: BP 160/92
== END 2021-04-15 18:27 | disposition home or self-care (01) ==
LOC: M ED 12:08
DX: K59.00 Constipation, unspecified (principal); K29.70 Gastritis, unspecified, without bleeding; R10.13 Epigastric pain; R56.9 Unspecified convulsions; F32.9 Major depressive disorder, single episode, unspecified; Z87.891 Personal history of nicotine dependence; Z79.899 Other long term (current) drug therapy; Z88.8 Allergy status to other drugs, medicaments and biological substances; Z88.2 Allergy status to sulfonamides; Z88.0 Allergy status to penicillin
CPT/HCPCS: 74021; 80048; 80076; 83690; 85025; 96374; 99284; C9113

== ENCOUNTER → 2021-06-24 | Outpatient (CLI) | payer MEDICARE ==
[~2021-06-24] MED LIST changes: +AMLO1TAB24; +LOSA50TA28; +PROM25TA12 PO; +SIME180C25 PO
== END ==
LOC: M PLAIMG 13:57
PROVIDERS: ATTEND Physician Assistant
DX: M85.88 Other specified disorders of bone density and structure, other site (principal); M54.41 Lumbago with sciatica, right side; R35.0 Frequency of micturition

== ENCOUNTER → 2021-06-24 | Outpatient (REF) | payer MEDICARE | LOC: M SFHCPLAZ 16:50 | PROVIDERS: ATTEND Physician Assistant | DX: R35.0 Frequency of micturition (principal) ==

== ENCOUNTER → 2021-09-15 | Outpatient (CLI) | payer MEDICARE ==
[2021-09-15 15:36] LABS: CALCIUM LEVEL 8.4 MG/DL (8.8-10.2); CREATININE FOR GFR 1.24 MG/DL (0.55-1.30); GLOMERULAR FILTRATION RATE 45.8 (>45); POTASSIUM SERUM 3.4 MEQ/L (3.5-5.1)
== END ==
LOC: M LAB 14:44
PROVIDERS: ATTEND Family Medicine
DX: N18.31 Chronic kidney disease, stage 3a (principal)

== ENCOUNTER 2021-09-22 11:52 | Emergency (ER) | payer MEDICARE ==
[~2021-09-22] VITALS: Ht 157.5 cm; Wt 68.2 kg
[2021-09-22 11:52] VITALS: BP 153/93
== END 2021-09-22 13:00 | disposition left against medical advice (07) ==
LOC: M ED 11:52
DX: Z53.21 Procedure and treatment not carried out due to patient leaving prior to being seen by health care provider (principal)

== ENCOUNTER → 2021-09-30 | Outpatient (REF) | payer MEDICARE | LOC: M LAB REF 16:25 | PROVIDERS: ATTEND Physician Assistant Medical | DX: J02.9 Acute pharyngitis, unspecified (principal) ==

== ENCOUNTER 2021-10-23 09:10 | Emergency (ER) | payer MEDICARE ==
[~2021-10-23] VITALS: Ht 157.5 cm; Wt 63.6 kg
[2021-10-23 09:43] LABS: BASO # 0.1 10^3/uL (0.0-0.2); BASO % 0.6 % (0.0-1.0); EOS # 0.2 10^3/uL (0.0-0.5); EOS % 1.4 % (0.0-3.0); HEMATOCRIT 44.2 % (36.0-47.0); HEMOGLOBIN 15.1 g/dl (12.0-15.5); LYMPH # 5.2 10^3/uL (1.5-5.0); LYMPH % 49.1 % (24.0-44.0); MEAN CORPUSCULAR HEMOGLOBIN 31.8 pg (27.0-33.0); MEAN CORPUSCULAR HGB CONC 34.2 g/dl (32.0-36.5); MEAN CORPUSCULAR VOLUME 93.1 fl (80.0-96.0); MONO # 0.7 10^3/uL (0.0-0.8); MONO % 6.1 % (2.0-8.0); NEUTROPHILS # 4.5 10^3/uL (1.5-8.5); NEUTROPHILS % 42.5 % (36.0-66.0); PLATELET COUNT, AUTOMATED 316 10^3/uL (150-450); RED BLOOD COUNT 4.75 10^6/uL (4.00-5.40); WHITE BLOOD COUNT 10.6 10^3/uL (4.0-10.0)
[2021-10-23] MEDS ORDERED: GI COCKTAIL 50ML BTL(HYOSCYAMINE/MAALOX/LIDOCAINE VISCOUS)(1:3:1) PO ONE (10:00)
[2021-10-23 10:15] LABS: CK-MB VALUE MASS < 1.0 NG/ML (<3.6); CPK CREATINE PHOSPHOKINASE 47 U/L (26-192); MB/CK RELATIVE INDEX 2.13 (< OR =4)
[2021-10-23 10:21] LABS: ALBUMIN 3.6 GM/DL (3.2-5.2); BILIRUBIN,DIRECT 0.1 MG/DL (0.0-0.2); BILIRUBIN,TOTAL 0.4 MG/DL (0.2-1.0); CALCIUM LEVEL 9.5 MG/DL (8.8-10.2); CREATININE FOR GFR 1.19 MG/DL (0.55-1.30); POTASSIUM SERUM 3.7 MEQ/L (3.5-5.1); THYROID STIMULATING HORMONE 2.74 uIU/ML (0.358-3.740); TOTAL PROTEIN 6.9 GM/DL (6.4-8.2)
[2021-10-23] MEDS ORDERED: ASPIRIN 81 MG CHEW TABLET PO ONE (10:25)
[2021-10-23] MEDS ORDERED: SUCRALFATE SUSP 1GM/10ML UD PO ONE (10:25)
[2021-10-23] MEDS ORDERED: ISOVUE-370 76% 100ML VIAL As Ordered ONE (10:53)
[2021-10-23 10:59] LABS: CK-MB VALUE MASS < 1.0 NG/ML (<3.6); CPK CREATINE PHOSPHOKINASE 40 U/L (26-192)
[2021-10-23 13:45] VITALS: BP 132/77
== END 2021-10-23 14:55 | disposition home or self-care (01) ==
LOC: M ED 09:10
DX: R07.9 Chest pain, unspecified (principal); I10 Essential (primary) hypertension; E78.5 Hyperlipidemia, unspecified; J44.9 Chronic obstructive pulmonary disease, unspecified; K21.9 Gastro-esophageal reflux disease without esophagitis; K44.9 Diaphragmatic hernia without obstruction or gangrene; Z87.891 Personal history of nicotine dependence; Z82.49 Family history of ischemic heart disease and other diseases of the circulatory system; Z79.899 Other long term (current) drug therapy; Z88.8 Allergy status to other drugs, medicaments and biological substances; Z88.2 Allergy status to sulfonamides; Z88.0 Allergy status to penicillin
CPT/HCPCS: 71045; 71275; 74174; 80048; 80076; 82550; 82553; 83690; 83880; 84443; 84484; 85025; 93005; 93041; 94760; 99285; Q9967

== ENCOUNTER → 2021-11-11 | Outpatient (CLI) | payer MEDICARE ==
[2021-11-11 11:11] LABS: ALBUMIN 3.8 GM/DL (3.2-5.2); BILIRUBIN,TOTAL 0.5 MG/DL (0.2-1.0); CALCIUM LEVEL 9.8 MG/DL (8.8-10.2); CHOLESTEROL RISK RATIO 3.529 (<5); CREATININE FOR GFR 1.05 MG/DL (0.55-1.30); GLOMERULAR FILTRATION RATE 55.5 (>45); POTASSIUM SERUM 4.2 MEQ/L (3.5-5.1)
[2021-11-11 11:40] LABS: TOTAL 25(OH) VITAMIN D 31.2 NG/ML (30.0-100.0)
[2021-11-11 12:47] LABS: HEMOGLOBIN A1c 5.5 %
== END ==
LOC: M WUC 08:40
PROVIDERS: ATTEND Nurse Practitioner Family
DX: E55.9 Vitamin D deficiency, unspecified (principal); Z13.220 Encounter for screening for lipoid disorders; Z13.1 Encounter for screening for diabetes mellitus

== ENCOUNTER 2021-11-17 11:34 | Emergency (ER) | payer MEDICARE ==
[~2021-11-17] VITALS: Ht 157.5 cm; Wt 63.8 kg
[2021-11-17 12:14] LABS: HEMATOCRIT 46.5 % (36.0-47.0); HEMOGLOBIN 15.6 g/dl (12.0-15.5); MEAN CORPUSCULAR HEMOGLOBIN 30.8 pg (27.0-33.0); MEAN CORPUSCULAR HGB CONC 33.5 g/dl (32.0-36.5); MEAN CORPUSCULAR VOLUME 91.9 fl (80.0-96.0); PLATELET COUNT, AUTOMATED 331 10^3/uL (150-450); RED BLOOD COUNT 5.06 10^6/uL (4.00-5.40); WHITE BLOOD COUNT 11.3 10^3/uL (4.0-10.0)
[2021-11-17] MEDS ORDERED: GI COCKTAIL 50ML BTL(HYOSCYAMINE/MAALOX/LIDOCAINE VISCOUS)(1:3:1) PO ONE (12:20)
[2021-11-17 12:47] LABS: ALBUMIN 3.9 GM/DL (3.2-5.2); BILIRUBIN,DIRECT 0.1 MG/DL (0.0-0.2); BILIRUBIN,TOTAL 0.4 MG/DL (0.2-1.0); CALCIUM LEVEL 9.4 MG/DL (8.8-10.2); CREATININE FOR GFR 1.1 MG/DL (0.55-1.30); GLOMERULAR FILTRATION RATE 52.6 (>45); POTASSIUM SERUM 3.7 MEQ/L (3.5-5.1); TOTAL PROTEIN 7.3 GM/DL (6.4-8.2)
[2021-11-17 12:48] LABS: ATYPICAL LYMPH 12 % (0-5); BASOPHILS 2 % (0-1); EOSINOPHILS 4 % (0-3); LYMPHOCYTES 35 % (16-44); MONOCYTES 6 % (0-5); NEUTROPHILS 40 % (28-66); PLATELET ESTIMATE NORMAL (NORMAL)
[2021-11-17] MEDS ORDERED: LEVS0.123 PO (13:20)
[2021-11-17 13:31] VITALS: BP 132/78
== END 2021-11-17 13:33 | disposition home or self-care (01) ==
LOC: M ED 11:34
DX: K21.9 Gastro-esophageal reflux disease without esophagitis (principal); K58.9 Irritable bowel syndrome, unspecified; K44.9 Diaphragmatic hernia without obstruction or gangrene; I10 Essential (primary) hypertension; J44.9 Chronic obstructive pulmonary disease, unspecified; E78.5 Hyperlipidemia, unspecified; Z87.891 Personal history of nicotine dependence; Z79.899 Other long term (current) drug therapy; Z88.8 Allergy status to other drugs, medicaments and biological substances; Z88.2 Allergy status to sulfonamides; Z88.0 Allergy status to penicillin

== ENCOUNTER → 2021-12-10 | Outpatient (CLI) | payer MEDICARE ==
[~2021-12-10] MED LIST changes: +LEVS0.123 PO
== END ==
LOC: M WHC 10:53
PROVIDERS: ATTEND Nurse Practitioner Family
DX: Z12.31 Encounter for screening mammogram for malignant neoplasm of breast (principal); Z13.820 Encounter for screening for osteoporosis; M85.89 Other specified disorders of bone density and structure, multiple sites

== ENCOUNTER → 2021-12-17 | Outpatient (REF) | payer MEDICARE ==
[2021-12-17 14:31] LABS: APPEARANCE, URINE CLEAR (CLEAR); BACTERIA, URINE AUTO 1+ (NEGATIVE); BILIRUBIN, URINE AUTO NEGATIVE (NEGATIVE); BLOOD, URINE BLOOD NEGATIVE (NEGATIVE); COLOR, URINE STRAW (YELLOW); GLUCOSE, URINE (UA) AUTO NEGATIVE (NEGATIVE); KETONE, URINE AUTO NEGATIVE (NEGATIVE); LEUKOCYTE ESTERASE, URINE AUTO NEGATIVE (NEGATIVE); NITRITE, URINE AUTO NEGATIVE (NEGATIVE); PROTEIN, URINE AUTO NEGATIVE (NEGATIVE); RBC, URINE AUTO 1 /HPF (0-3); SPECIFIC GRAVITY URINE AUTO 1.003 (1.002-1.035); SQUAMOUS EPITHELIAL CELL UR AU 1 /HPF (0-6); UROBILINOGEN, URINE AUTO 0.2 mg/dL (0.0-2.0); WBC, URINE AUTO 0 /HPF (0-3)
== END ==
LOC: M SFHCPLAZ 13:11
PROVIDERS: ATTEND Nurse Practitioner Family
DX: N39.0 Urinary tract infection, site not specified (principal)

== ENCOUNTER → 2022-01-09 | Outpatient (CLI) | payer MEDICARE ==
[~2022-01-09] MED LIST changes: +ESCITALOPRAM; +SUCR1TAB56
== END ==
LOC: M PLAIMG 14:23
PROVIDERS: ATTEND Nurse Practitioner Family
DX: M25.511 Pain in right shoulder (principal)

== ENCOUNTER 2022-01-13 11:27 | Emergency (ER) | payer MEDICARE ==
[~2022-01-13] VITALS: Ht 152.4 cm; Wt 61.4 kg
[~2022-01-13 11:27] MED LIST changes: -ESCITALOPRAM; -SUCR1TAB56
[2022-01-13] MEDS ORDERED: ESCITALOPRAM (11:33)
[2022-01-13] MEDS ORDERED: SUCR1TAB56 (11:33)
[2022-01-13 13:42] LABS: HEMATOCRIT 49.3 % (36.0-47.0); HEMOGLOBIN 16.1 g/dl (12.0-15.5); MEAN CORPUSCULAR HEMOGLOBIN 30.6 pg (27.0-33.0); MEAN CORPUSCULAR HGB CONC 32.7 g/dl (32.0-36.5); MEAN CORPUSCULAR VOLUME 93.7 fl (80.0-96.0); PLATELET COUNT, AUTOMATED 325 10^3/uL (150-450); RED BLOOD COUNT 5.26 10^6/uL (4.00-5.40); WHITE BLOOD COUNT 14.9 10^3/uL (4.0-10.0)
[2022-01-13 14:12] LABS: ATYPICAL LYMPH 1 % (0-5); LYMPHOCYTES 36 % (16-44); MONOCYTES 1 % (0-5); NEUTROPHILS 62 % (28-66); PLATELET ESTIMATE NORMAL (NORMAL)
[2022-01-13 14:14] LABS: ALBUMIN 3.9 GM/DL (3.2-5.2); BILIRUBIN,DIRECT 0.1 MG/DL (0.0-0.2); BILIRUBIN,TOTAL 0.5 MG/DL (0.2-1.0); CALCIUM LEVEL 9.7 MG/DL (8.8-10.2); CREATININE FOR GFR 1.06 MG/DL (0.55-1.30); GLOMERULAR FILTRATION RATE 54.9 (>45); POTASSIUM SERUM 4.1 MEQ/L (3.5-5.1); TOTAL PROTEIN 7.6 GM/DL (6.4-8.2)
[2022-01-13] MEDS ORDERED: ISOVUE-370 76% 100ML VIAL As Ordered ONE (16:25)
[2022-01-13 18:36] VITALS: BP 150/86
== END 2022-01-13 18:44 | disposition home or self-care (01) ==
LOC: M ED 11:27
DX: K52.9 Noninfective gastroenteritis and colitis, unspecified (principal); I10 Essential (primary) hypertension; K21.9 Gastro-esophageal reflux disease without esophagitis; K44.9 Diaphragmatic hernia without obstruction or gangrene; Z87.891 Personal history of nicotine dependence; K76.0 Fatty (change of) liver, not elsewhere classified; Z79.899 Other long term (current) drug therapy; Z88.2 Allergy status to sulfonamides; Z88.0 Allergy status to penicillin; Z88.8 Allergy status to other drugs, medicaments and biological substances
CPT/HCPCS: 74177; 80048; 80076; 83690; 85025; 99284; Q9967

== ENCOUNTER → 2022-01-14 | Outpatient (REF) | payer MEDICARE ==
[~2022-01-14] MED LIST changes: +ESCITALOPRAM; +SUCR1TAB56
== END ==
LOC: M LAB REF 14:15
PROVIDERS: ATTEND Nurse Practitioner Family
DX: K52.9 Noninfective gastroenteritis and colitis, unspecified (principal)

== ENCOUNTER 2022-02-08 10:53 | Emergency (ER) | payer MEDICARE ==
[~2022-02-08] VITALS: Ht 157.5 cm; Wt 60.1 kg
[2022-02-08] MEDS ORDERED: GI COCKTAIL 50ML BTL(HYOSCYAMINE/MAALOX/LIDOCAINE VISCOUS)(1:3:1) PO ONE (11:35)
[2022-02-08 12:00] VITALS: BP 158/86
[2022-02-08 12:03] LABS: BASO % 0.5 % (0.0-1.0); EOS # 0.1 10^3/uL (0.0-0.5); HEMATOCRIT 42.6 % (36.0-47.0); HEMOGLOBIN 14.7 g/dl (12.0-15.5); LYMPH # 4.3 10^3/uL (1.5-5.0); LYMPH % 51.1 % (24.0-44.0); MEAN CORPUSCULAR HEMOGLOBIN 31.3 pg (27.0-33.0); MEAN CORPUSCULAR HGB CONC 34.5 g/dl (32.0-36.5); MEAN CORPUSCULAR VOLUME 90.8 fl (80.0-96.0); MONO # 0.5 10^3/uL (0.0-0.8); MONO % 6.3 % (2.0-8.0); NEUTROPHILS # 3.4 10^3/uL (1.5-8.5); NEUTROPHILS % 40.9 % (36.0-66.0); PLATELET COUNT, AUTOMATED 252 10^3/uL (150-450); RED BLOOD COUNT 4.69 10^6/uL (4.00-5.40); WHITE BLOOD COUNT 8.4 10^3/uL (4.0-10.0)
[2022-02-08 12:28] LABS: CK-MB VALUE MASS < 1.0 NG/ML (<3.6); CPK CREATINE PHOSPHOKINASE 54 U/L (26-192); MB/CK RELATIVE INDEX 1.85 (< OR =4)
[2022-02-08 12:35] LABS: ALBUMIN 3.6 GM/DL (3.2-5.2); BILIRUBIN,DIRECT 0.1 MG/DL (0.0-0.2); BILIRUBIN,TOTAL 0.5 MG/DL (0.2-1.0); FREE T4 1.31 NG/DL (0.76-1.46); THYROID STIMULATING HORMONE 1.37 uIU/ML (0.358-3.740); TOTAL PROTEIN 6.5 GM/DL (6.4-8.2)
[2022-02-08] MEDS ORDERED: ISOVUE-370 76% 100ML VIAL As Ordered ONE (12:49)
[2022-02-08 13:08] LABS: CREATININE FOR GFR 0.99 MG/DL (0.55-1.30); GLOMERULAR FILTRATION RATE 59.4 (>45); POTASSIUM SERUM 3.4 MEQ/L (3.5-5.1)
[2022-02-08 13:37] LABS: CK-MB VALUE MASS < 1.0 NG/ML (<3.6); CPK CREATINE PHOSPHOKINASE 47 U/L (26-192); MB/CK RELATIVE INDEX 2.13 (< OR =4)
== END 2022-02-08 14:35 | disposition home or self-care (01) ==
LOC: M ED 10:53
DX: R07.9 Chest pain, unspecified (principal); R10.9 Unspecified abdominal pain; I10 Essential (primary) hypertension; K21.9 Gastro-esophageal reflux disease without esophagitis; F41.9 Anxiety disorder, unspecified; F32.9 Major depressive disorder, single episode, unspecified; Z87.891 Personal history of nicotine dependence; Z79.899 Other long term (current) drug therapy; Z88.2 Allergy status to sulfonamides; Z88.0 Allergy status to penicillin; Z88.8 Allergy status to other drugs, medicaments and biological substances
CPT/HCPCS: 71045; 71275; 74177; 80047; 80048; 80076; 82550; 82553; 83690; 83735; 83880; 84439; 84443; 84484; 85025; 93005; 93041; 94760; 99285; Q9967

== ENCOUNTER → 2022-03-27 | Outpatient (CLI) | payer MEDICARE | LOC: M RAD 12:32 | PROVIDERS: ATTEND Internal Medicine Gastroenterology | DX: R10.13 Epigastric pain (principal); K59.00 Constipation, unspecified; R63.4 Abnormal weight loss; R63.0 Anorexia; K44.9 Diaphragmatic hernia without obstruction or gangrene; K58.0 Irritable bowel syndrome with diarrhea ==

== ENCOUNTER 2022-04-09 10:45 | Emergency (ER) | payer MEDICARE ==
[~2022-04-09] VITALS: Ht 157.5 cm; Wt 59.3 kg
[2022-04-09] MEDS ORDERED: LINZ145C PO (11:10)
[2022-04-09] MEDS ORDERED: NS 500 ML IV ONE (11:45)
[2022-04-09] MEDS ORDERED: KETOROLAC 30 MG/ML 1ML VIAL IV ONE (11:45)
[2022-04-09 12:15] LABS: APPEARANCE, URINE MANUAL CLEAR (CLEAR); COLOR, URINE MANUAL YELLOW (YELLOW); SPECIFIC GRAVITY,URINE MANUAL 1.005 (1.002-1.035)
[2022-04-09 12:16] LABS: BASO % 0.4 % (0.0-1.0); EOS # 0.1 10^3/uL (0.0-0.5); EOS % 0.8 % (0.0-3.0); HEMATOCRIT 44.1 % (36.0-47.0); HEMOGLOBIN 14.8 g/dl (12.0-15.5); LYMPH # 4.4 10^3/uL (1.5-5.0); MEAN CORPUSCULAR HEMOGLOBIN 30.9 pg (27.0-33.0); MEAN CORPUSCULAR HGB CONC 33.6 g/dl (32.0-36.5); MEAN CORPUSCULAR VOLUME 92.1 fl (80.0-96.0); MONO # 0.5 10^3/uL (0.0-0.8); MONO % 5.6 % (2.0-8.0); NEUTROPHILS # 4.5 10^3/uL (1.5-8.5); NEUTROPHILS % 46.8 % (36.0-66.0); PLATELET COUNT, AUTOMATED 288 10^3/uL (150-450); RED BLOOD COUNT 4.79 10^6/uL (4.00-5.40); WHITE BLOOD COUNT 9.6 10^3/uL (4.0-10.0)
[2022-04-09] MEDS ORDERED: DICYCLOMINE INJ 20MG/2ML (J0500) IM ONE (12:35)
[2022-04-09 12:41] LABS: PROTEIN, URINE MANUAL NEGATIVE (NEGATIVE)
[2022-04-09 12:42] LABS: BILIRUBIN, URINE MANUAL NEGATIVE (NEGATIVE); BLOOD URINE MANUAL NEGATIVE (NEGATIVE); GLUCOSE, URINE (UA) MANUAL NEGATIVE (NEGATIVE); KETONE, URINE MANUAL NEGATIVE (NEGATIVE); LEUKOCYTE ESTERASE, URINE MAN NEGATIVE (NEGATIVE); NITRITE, URINE MANUAL NEGATIVE (NEGATIVE); UROBILINOGEN, URINE MANUAL NORMAL (NORMAL)
[2022-04-09 12:47] LABS: RSV AMPLIFICATION NEGATIVE (NEGATIVE)
[2022-04-09] MEDS ORDERED: ALPRAZolam 0.5 MG TAB PO ONE (12:50)
[2022-04-09 13:16] LABS: ALBUMIN 3.8 G/DL (3.2-5.2); ALT/SGPT 29 U/L (7.0-40); BILIRUBIN,DIRECT 0.1 MG/DL (<0.4); BILIRUBIN,TOTAL 0.5 MG/DL (0.3-1.2); BLOOD UREA NITROGEN 10 MG/DL (9-23); CALCIUM LEVEL 9.1 MG/DL (8.3-10.6); CARBON DIOXIDE LEVEL 24 MMOL/L (20-31); CHLORIDE LEVEL 105 MMOL/L (98-107); CK-MB VALUE MASS < 1.0 NG/ML (<3.6); CPK CREATINE PHOSPHOKINASE 50 U/L (34-145); GLOMERULAR FILTRATION RATE > 60.0 (>45); GLUCOSE, FASTING 98 MG/DL (74-106); LIPASE 31 U/L (12-53); POTASSIUM SERUM 3.9 MMOL/L (3.5-5.1); SODIUM LEVEL 140 MMOL/L (136-145); TOTAL PROTEIN 6.7 G/DL (5.7-8.2)
[2022-04-09] MEDS ORDERED: ISOVUE-370 76% 100ML VIAL As Ordered ONE (13:18)
[2022-04-09] MEDS ORDERED: DICY20TA20 PO (14:20)
[2022-04-09 14:27] VITALS: BP 148/92
== END 2022-04-09 14:38 | disposition home or self-care (01) ==
LOC: M ED 10:45
DX: F41.9 Anxiety disorder, unspecified (principal); M62.838 Other muscle spasm; K44.9 Diaphragmatic hernia without obstruction or gangrene; Z87.19 Personal history of other diseases of the digestive system; I10 Essential (primary) hypertension; K58.9 Irritable bowel syndrome, unspecified; F32.9 Major depressive disorder, single episode, unspecified; Z79.899 Other long term (current) drug therapy; Z88.8 Allergy status to other drugs, medicaments and biological substances; Z88.2 Allergy status to sulfonamides; Z88.0 Allergy status to penicillin
CPT/HCPCS: 36415; 71046; 74177; 80048; 80076; 81002; 82550; 82553; 83605; 83690; 84484; 85025; 87631; 93005; 96361; 96372; 96374; 99284; J0500; J1885; Q9967

== ENCOUNTER → 2022-06-25 | Outpatient (CLI) | payer MEDICARE ==
[~2022-06-25] MED LIST changes: +DICY20TA20 PO; +LINZ145C PO
[2022-06-25 15:25] LABS: LIPASE 29 U/L (12-53)
[2022-06-25 15:28] LABS: ALBUMIN 3.8 G/DL (3.2-5.2); ALKALINE PHOSPHATASE 117 U/L (46-116); ALT/SGPT 34 U/L (7.0-40); AST/SGOT 22 U/L (<34); BILIRUBIN,TOTAL 0.5 MG/DL (0.3-1.2); BLOOD UREA NITROGEN 9 MG/DL (9-23); C REACTIVE PROTEIN QUANTITATIV < 0.40 MG/DL (<1.0); CALCIUM LEVEL 9.4 MG/DL (8.3-10.6); CARBON DIOXIDE LEVEL 31 MMOL/L (20-31); CHLORIDE LEVEL 107 MMOL/L (98-107); CREATININE FOR GFR 1.02 MG/DL (0.55-1.30); GLOMERULAR FILTRATION RATE 57.2 (>45); GLUCOSE, FASTING 94 MG/DL (74-106); POTASSIUM SERUM 4.2 MMOL/L (3.5-5.1); SODIUM LEVEL 140 MMOL/L (136-145); TOTAL PROTEIN 6.5 G/DL (5.7-8.2)
[2022-06-25 15:31] LABS: BASO % 0.4 % (0.0-1.0); EOS % 0.4 % (0.0-3.0); HEMATOCRIT 47.3 % (36.0-47.0); HEMOGLOBIN 15.2 g/dl (12.0-15.5); LYMPH # 3.5 10^3/uL (1.5-5.0); LYMPH % 36.8 % (24.0-44.0); MEAN CORPUSCULAR HEMOGLOBIN 29.9 pg (27.0-33.0); MEAN CORPUSCULAR HGB CONC 32.1 g/dl (32.0-36.5); MEAN CORPUSCULAR VOLUME 93.1 fl (80.0-96.0); MONO # 0.6 10^3/uL (0.0-0.8); MONO % 5.9 % (2.0-8.0); NEUTROPHILS # 5.4 10^3/uL (1.5-8.5); PLATELET COUNT, AUTOMATED 326 10^3/uL (150-450); RED BLOOD COUNT 5.08 10^6/uL (4.00-5.40); WHITE BLOOD COUNT 9.6 10^3/uL (4.0-10.0)
[2022-06-25 16:00] LABS: ERYTHROCYTE SEDIMENTATION RATE 8 mm/hr (0-30)
== END ==
LOC: M PLALAB 11:19
PROVIDERS: ATTEND Physician Assistant
DX: R10.31 Right lower quadrant pain (principal); G89.29 Other chronic pain

== ENCOUNTER 2022-07-05 09:50 | Emergency (ER) | payer MEDICARE ==
[~2022-07-05] VITALS: Ht 157.5 cm; Wt 53.6 kg
[2022-07-05] MEDS ORDERED: NS 1,000 ML IV ONE (10:20)
[2022-07-05] MEDS ORDERED: KETOROLAC 30 MG/ML 1ML VIAL IV ONE (11:15)
[2022-07-05] MEDS ORDERED: BISACODYL 10MG SUPP PR ONE (11:15)
[2022-07-05 11:24] LABS: BASO % 0.4 % (0.0-1.0); EOS # 0.1 10^3/uL (0.0-0.5); EOS % 0.6 % (0.0-3.0); HEMATOCRIT 47.5 % (36.0-47.0); HEMOGLOBIN 15.5 g/dl (12.0-15.5); LYMPH # 3.7 10^3/uL (1.5-5.0); LYMPH % 46.2 % (24.0-44.0); MEAN CORPUSCULAR HEMOGLOBIN 31.1 pg (27.0-33.0); MEAN CORPUSCULAR HGB CONC 32.6 g/dl (32.0-36.5); MEAN CORPUSCULAR VOLUME 95.4 fl (80.0-96.0); MONO # 0.4 10^3/uL (0.0-0.8); MONO % 5.3 % (2.0-8.0); NEUTROPHILS # 3.8 10^3/uL (1.5-8.5); NEUTROPHILS % 47.1 % (36.0-66.0); RED BLOOD COUNT 4.98 10^6/uL (4.00-5.40)
[2022-07-05 11:51] LABS: PLATELET COUNT, AUTOMATED 222 10^3/uL (150-450)
[2022-07-05 11:56] LABS: ALBUMIN 3.3 G/DL (3.2-5.2); ALKALINE PHOSPHATASE 95 U/L (46-116); ALT/SGPT 23 U/L (7.0-40); AST/SGOT 56 U/L (<34); BILIRUBIN,DIRECT < 0.1 MG/DL (<0.4); BILIRUBIN,TOTAL 0.5 MG/DL (0.3-1.2); BLOOD UREA NITROGEN 11 MG/DL (9-23); CARBON DIOXIDE LEVEL 24 MMOL/L (20-31); CHLORIDE LEVEL 107 MMOL/L (98-107); CREATININE FOR GFR 0.84 MG/DL (0.55-1.30); GLOMERULAR FILTRATION RATE > 60.0 (>45); GLUCOSE, FASTING 93 MG/DL (74-106); LIPASE 40 U/L (12-53); POTASSIUM SERUM 6.3 MMOL/L (3.5-5.1); SODIUM LEVEL 137 MMOL/L (136-145); TOTAL PROTEIN 6.5 G/DL (5.7-8.2)
[2022-07-05] MEDS ORDERED: MAGNSOL2 PO (13:29)
[2022-07-05 13:34] VITALS: BP 160/92
== END 2022-07-05 13:35 | disposition home or self-care (01) ==
LOC: M ED 09:50
DX: K58.9 Irritable bowel syndrome, unspecified (principal); K59.00 Constipation, unspecified; K21.9 Gastro-esophageal reflux disease without esophagitis; F41.9 Anxiety disorder, unspecified; I10 Essential (primary) hypertension; Z88.1 Allergy status to other antibiotic agents; Z88.2 Allergy status to sulfonamides; Z88.8 Allergy status to other drugs, medicaments and biological substances; Z79.891 Long term (current) use of opiate analgesic; Z79.899 Other long term (current) drug therapy

== ENCOUNTER → 2022-07-20 | Outpatient (CLI) | payer MEDICARE ==
[~2022-07-20] MED LIST changes: +MAGNSOL2 PO
[2022-07-20 17:42] LABS: HEMATOCRIT 44.3 % (36.0-47.0); HEMOGLOBIN 14.6 g/dl (12.0-15.5); MEAN CORPUSCULAR HEMOGLOBIN 31.1 pg (27.0-33.0); MEAN CORPUSCULAR VOLUME 94.5 fl (80.0-96.0); PLATELET COUNT, AUTOMATED 283 10^3/uL (150-450); RED BLOOD COUNT 4.69 10^6/uL (4.00-5.40); WHITE BLOOD COUNT 10.6 10^3/uL (4.0-10.0)
[2022-07-20 18:06] LABS: LIPASE 31 U/L (12-53)
[2022-07-20 18:08] LABS: ALBUMIN 3.3 G/DL (3.2-5.2); ALKALINE PHOSPHATASE 95 U/L (46-116); ALT/SGPT 27 U/L (7.0-40); AST/SGOT 23 U/L (<34); BILIRUBIN,DIRECT < 0.1 MG/DL (<0.4); BILIRUBIN,TOTAL 0.2 MG/DL (0.3-1.2); C REACTIVE PROTEIN QUANTITATIV < 0.40 MG/DL (<1.0); TOTAL PROTEIN 5.9 G/DL (5.7-8.2)
== END ==
LOC: M LAB 16:25
PROVIDERS: ATTEND Internal Medicine Gastroenterology
DX: R10.84 Generalized abdominal pain (principal); R63.4 Abnormal weight loss; K59.00 Constipation, unspecified; K58.0 Irritable bowel syndrome with diarrhea

== ENCOUNTER → 2022-08-26 | Outpatient (CLI) | payer MEDICARE | LOC: M RAD 11:29 | PROVIDERS: ATTEND Physician Assistant | DX: K58.1 Irritable bowel syndrome with constipation (principal); R10.84 Generalized abdominal pain; K30 Functional dyspepsia | CPT/HCPCS: 78264; A9541 ==

== ENCOUNTER → 2022-10-19 | Outpatient (CLI) | payer MEDICARE ==
[2022-10-19 13:41] LABS: BASO # 0.1 10^3/uL (0.0-0.2); BASO % 0.5 % (0.0-1.0); EOS # 0.1 10^3/uL (0.0-0.5); EOS % 1.3 % (0.0-3.0); HEMATOCRIT 44.7 % (36.0-47.0); HEMOGLOBIN 14.7 g/dl (12.0-15.5); LYMPH # 4.9 10^3/uL (1.5-5.0); MEAN CORPUSCULAR HEMOGLOBIN 31.1 pg (27.0-33.0); MEAN CORPUSCULAR HGB CONC 32.9 g/dl (32.0-36.5); MEAN CORPUSCULAR VOLUME 94.7 fl (80.0-96.0); MONO # 0.7 10^3/uL (0.0-0.8); MONO % 7.1 % (2.0-8.0); NEUTROPHILS # 4.1 10^3/uL (1.5-8.5); NEUTROPHILS % 41.8 % (36.0-66.0); PLATELET COUNT, AUTOMATED 287 10^3/uL (150-450); RED BLOOD COUNT 4.72 10^6/uL (4.00-5.40); WHITE BLOOD COUNT 9.9 10^3/uL (4.0-10.0)
[2022-10-19 13:46] LABS: ALBUMIN 3.7 G/DL (3.2-5.2); BILIRUBIN,TOTAL 0.5 MG/DL (0.3-1.2); CALCIUM LEVEL 8.5 MG/DL (8.3-10.6); CHOLESTEROL RISK RATIO 3.18 (<5); CREATININE FOR GFR 1.04 MG/DL (0.55-1.30); GLOMERULAR FILTRATION RATE 55.9 (>45); HDL CHOLESTEROL 55.2 MG/DL (>40); LDL CHOLESTEROL 104.4 MG/DL (<100); NON-HDL-C 120.8 MG/DL; TOTAL PROTEIN 6.1 G/DL (5.7-8.2)
== END ==
LOC: M WUC 09:58
PROVIDERS: ATTEND Student in an Organized Health Care Education/Training Program
DX: Z00.00 Encounter for general adult medical examination without abnormal findings (principal); I10 Essential (primary) hypertension

== ENCOUNTER → 2022-12-15 | Outpatient (REF) | payer MEDICARE | LOC: M LAB REF 12:02 | PROVIDERS: ATTEND Physician Assistant Medical | DX: B34.9 Viral infection, unspecified (principal); J02.9 Acute pharyngitis, unspecified ==

== ENCOUNTER 2023-03-26 09:13 | Emergency (ER) | payer MEDICARE ==
[~2023-03-26] VITALS: Ht 157.5 cm; Wt 54.0 kg
[~2023-03-26 09:13] MED LIST changes: -CEFD300C42 PO; -ESTR1DIS; -HYDR-3363; -METR-265 PO; -PANT40TA29
[2023-03-26] MEDS ORDERED: SUCR1TAB56 (09:25)
[2023-03-26] MEDS ORDERED: ESTR1DIS (09:25)
[2023-03-26] MEDS ORDERED: PANT40TA29 (09:25)
[2023-03-26] MEDS ORDERED: HYDR-3363 (09:26)
[2023-03-26] MEDS ORDERED: DICYCLOMINE 10 MG CAP PO ONE (09:40)
[2023-03-26 09:58] LABS: BASO # 0.1 10^3/uL (0.0-0.2); BASO % 0.6 % (0.0-1.0); EOS # 0.2 10^3/uL (0.0-0.5); EOS % 1.8 % (0.0-3.0); HEMATOCRIT 46.2 % (36.0-47.0); HEMOGLOBIN 15.7 g/dl (12.0-15.5); LYMPH # 4.9 10^3/uL (1.5-5.0); LYMPH % 48.3 % (24.0-44.0); MEAN CORPUSCULAR HEMOGLOBIN 31.7 pg (27.0-33.0); MEAN CORPUSCULAR VOLUME 93.3 fl (80.0-96.0); MONO # 0.7 10^3/uL (0.0-0.8); MONO % 7.1 % (2.0-8.0); NEUTROPHILS # 4.2 10^3/uL (1.5-8.5); NEUTROPHILS % 41.8 % (36.0-66.0); PLATELET COUNT, AUTOMATED 293 10^3/uL (150-450); RED BLOOD COUNT 4.95 10^6/uL (4.00-5.40); WHITE BLOOD COUNT 10.1 10^3/uL (4.0-10.0)
[2023-03-26] MEDS ORDERED: KETOROLAC 30 MG/ML 1ML VIAL IV ONE (10:15)
[2023-03-26 10:21] LABS: ALBUMIN 3.7 G/DL (3.2-5.2); BILIRUBIN,DIRECT 0.2 MG/DL (<0.4); BILIRUBIN,TOTAL 0.6 MG/DL (0.3-1.2); POTASSIUM SERUM 3.2 MMOL/L (3.5-5.1); TOTAL PROTEIN 6.4 G/DL (5.7-8.2)
[2023-03-26] MEDS ORDERED: ISOVUE-370 76% 100ML VIAL As Ordered ONE (10:25)
[2023-03-26 12:09] VITALS: BP 156/76; TEMP 97.4; O2SAT 98
[2023-03-26] MEDS ORDERED: CEFD300C42 PO (12:17)
[2023-03-26] MEDS ORDERED: METR-265 PO (12:17)
[2023-03-26] MEDS ORDERED: POTASSIUM CHLORIDE 10MEQ SR TABLET PO ONE (13:00)
== END 2023-03-26 12:56 | disposition home or self-care (01) ==
LOC: M ED 09:13
DX: K52.9 Noninfective gastroenteritis and colitis, unspecified (principal); Z88.1 Allergy status to other antibiotic agents; Z88.2 Allergy status to sulfonamides; K21.9 Gastro-esophageal reflux disease without esophagitis; F41.9 Anxiety disorder, unspecified; Z79.899 Other long term (current) drug therapy
CPT/HCPCS: 74177; 80047; 80076; 81001; 83690; 83993; 84132; 85025; 87507; 93005; 96374; 99284; J1885; Q9967

== ENCOUNTER → 2023-03-26 | Outpatient (REF) | payer MEDICARE ==
[~2023-03-26] MED LIST changes: +CEFD300C42 PO; +ESTR1DIS; +HYDR-3363; +METR-265 PO; +PANT40TA29
== END ==
LOC: M LAB REF 18:08
PROVIDERS: ATTEND Physician Assistant
DX: K52.9 Noninfective gastroenteritis and colitis, unspecified (principal)

== ENCOUNTER 2023-04-01 11:22 | Emergency (ER) | payer MEDICARE ==
[~2023-04-01] VITALS: Ht 157.5 cm; Wt 53.9 kg
[~2023-04-01 11:22] MED LIST changes: +CEFD300C42 PO; +ESTR1DIS; +HYDR-3363; +METR-265 PO; +PANT40TA29
[2023-04-01 14:16] LABS: BASO # 0.1 10^3/uL (0.0-0.2); BASO % 0.5 % (0.0-1.0); EOS # 0.1 10^3/uL (0.0-0.5); EOS % 0.8 % (0.0-3.0); HEMATOCRIT 47.1 % (36.0-47.0); HEMOGLOBIN 15.6 g/dl (12.0-15.5); LYMPH # 4.1 10^3/uL (1.5-5.0); LYMPH % 39.9 % (24.0-44.0); MEAN CORPUSCULAR HEMOGLOBIN 30.8 pg (27.0-33.0); MEAN CORPUSCULAR HGB CONC 33.1 g/dl (32.0-36.5); MEAN CORPUSCULAR VOLUME 92.9 fl (80.0-96.0); MONO # 0.6 10^3/uL (0.0-0.8); MONO % 5.5 % (2.0-8.0); NEUTROPHILS # 5.5 10^3/uL (1.5-8.5); PLATELET COUNT, AUTOMATED 277 10^3/uL (150-450); RED BLOOD COUNT 5.07 10^6/uL (4.00-5.40); WHITE BLOOD COUNT 10.3 10^3/uL (4.0-10.0)
[2023-04-01 14:32] LABS: LIPASE 32 U/L (12-53)
[2023-04-01 14:34] LABS: ALBUMIN 3.8 G/DL (3.2-5.2); ALKALINE PHOSPHATASE 94 U/L (46-116); ALT/SGPT 21 U/L (7.0-40); AST/SGOT 17 U/L (<34); BILIRUBIN,DIRECT 0.1 MG/DL (<0.4); BILIRUBIN,TOTAL 0.4 MG/DL (0.3-1.2); BLOOD UREA NITROGEN 10 MG/DL (9-23); CALCIUM LEVEL 9.2 MG/DL (8.3-10.6); CARBON DIOXIDE LEVEL 29 MMOL/L (20-31); CHLORIDE LEVEL 105 MMOL/L (98-107); CREATININE FOR GFR 0.88 MG/DL (0.55-1.30); GLOMERULAR FILTRATION RATE > 60.0 (>39); GLUCOSE, FASTING 93 MG/DL (74-106); POTASSIUM SERUM 4.5 MMOL/L (3.5-5.1); SODIUM LEVEL 139 MMOL/L (136-145); TOTAL PROTEIN 6.6 G/DL (5.7-8.2)
[2023-04-01] MEDS ORDERED: KETOROLAC 30 MG/ML 1ML VIAL IM ONE (16:05)
[2023-04-01] MEDS ORDERED: ALPRAZolam 0.5 MG TAB PO ONE (16:05)
[2023-04-01] MEDS ORDERED: DICYCLOMINE 10 MG CAP PO ONE (16:05)
[2023-04-01 17:34] VITALS: BP 178/81; TEMP 97.7; O2SAT 98
== END 2023-04-01 17:41 | disposition home or self-care (01) ==
LOC: M ED 11:22
DX: R10.9 Unspecified abdominal pain (principal); F41.9 Anxiety disorder, unspecified; F43.10 Post-traumatic stress disorder, unspecified; K58.9 Irritable bowel syndrome, unspecified; Z88.2 Allergy status to sulfonamides; Z88.1 Allergy status to other antibiotic agents; Z88.0 Allergy status to penicillin; Z88.8 Allergy status to other drugs, medicaments and biological substances; Z79.899 Other long term (current) drug therapy
CPT/HCPCS: 80048; 80076; 83690; 85025; 93005; 96372; 99284; J1885

== ENCOUNTER 2023-05-01 12:18 | Emergency (ER) | payer MEDICARE ==
[~2023-05-01] VITALS: Ht 157.5 cm; Wt 51.4 kg
[~2023-05-01 12:18] MED LIST changes: +CEFD1CAP9 PO; -CEFD300C42 PO
[2023-05-01] MEDS ORDERED: OMEP40CA5 (12:31)
[2023-05-01 13:24] LABS: BASO % 0.4 % (0.0-1.0); EOS # 0.1 10^3/uL (0.0-0.5); HEMOGLOBIN 14.8 g/dl (12.0-15.5); LYMPH # 4.4 10^3/uL (1.5-5.0); LYMPH % 53.4 % (24.0-44.0); MEAN CORPUSCULAR HEMOGLOBIN 31.8 pg (27.0-33.0); MEAN CORPUSCULAR HGB CONC 34.4 g/dl (32.0-36.5); MEAN CORPUSCULAR VOLUME 92.3 fl (80.0-96.0); MONO # 0.5 10^3/uL (0.0-0.8); MONO % 6.6 % (2.0-8.0); NEUTROPHILS # 3.1 10^3/uL (1.5-8.5); NEUTROPHILS % 38.2 % (36.0-66.0); PLATELET COUNT, AUTOMATED 273 10^3/uL (150-450); RED BLOOD COUNT 4.66 10^6/uL (4.00-5.40); WHITE BLOOD COUNT 8.2 10^3/uL (4.0-10.0)
[2023-05-01 13:54] LABS: BLOOD UREA NITROGEN 9 MG/DL (9-23); CALCIUM LEVEL 8.7 MG/DL (8.3-10.6); CARBON DIOXIDE LEVEL 25 MMOL/L (20-31); CHLORIDE LEVEL 108 MMOL/L (98-107); CREATININE FOR GFR 0.79 MG/DL (0.55-1.30); GLOMERULAR FILTRATION RATE > 60.0 (>39); GLUCOSE, FASTING 94 MG/DL (74-106); POTASSIUM SERUM 4.1 MMOL/L (3.5-5.1); SODIUM LEVEL 139 MMOL/L (136-145)
[2023-05-01 13:56] LABS: FREE T4 1.22 NG/DL (0.89-1.76); THYROID STIMULATING HORMONE 1.917 uIU/ML (0.55-4.78)
[2023-05-01 14:31] VITALS: BP 163/93; TEMP 97.5; O2SAT 99
== END 2023-05-01 14:39 | disposition home or self-care (01) ==
LOC: M ED 12:18
DX: F41.9 Anxiety disorder, unspecified (principal); T43.225A Adverse effect of selective serotonin reuptake inhibitors, initial encounter; K58.1 Irritable bowel syndrome with constipation; Z87.891 Personal history of nicotine dependence; Z88.1 Allergy status to other antibiotic agents; Z88.2 Allergy status to sulfonamides; Z79.83 Long term (current) use of bisphosphonates; Z79.810 Long term (current) use of selective estrogen receptor modulators (SERMs); Z79.891 Long term (current) use of opiate analgesic; Z79.899 Other long term (current) drug therapy

== ENCOUNTER → 2023-08-06 | Outpatient (REF) | payer MEDICARE ==
[~2023-08-06] MED LIST changes: +OMEP40CA5
[2023-08-06 21:43] LABS: APPEARANCE, URINE HAZY (CLEAR); BACTERIA, URINE AUTO NEGATIVE (NEGATIVE); BILIRUBIN, URINE AUTO NEGATIVE (NEGATIVE); BLOOD, URINE BLOOD NEGATIVE (NEGATIVE); COLOR, URINE YELLOW (YELLOW); GLUCOSE, URINE (UA) AUTO NEGATIVE (NEGATIVE); KETONE, URINE AUTO NEGATIVE (NEGATIVE); LEUKOCYTE ESTERASE, URINE AUTO NEGATIVE (NEGATIVE); MUCUS, URINE SMALL (NEGATIVE); NITRITE, URINE AUTO NEGATIVE (NEGATIVE); PROTEIN, URINE AUTO NEGATIVE (NEGATIVE); RBC, URINE AUTO 3 /HPF (0-3); SQUAMOUS EPITHELIAL CELL UR AU 2 /HPF (0-6); UROBILINOGEN, URINE AUTO 0.2 mg/dL (0.0-2.0); WBC, URINE AUTO 2 /HPF (0-3)
== END ==
LOC: M LAB REF 21:13
PROVIDERS: ATTEND Physician Assistant
DX: N39.0 Urinary tract infection, site not specified (principal)

== ENCOUNTER → 2023-08-20 | Outpatient (CLI) | payer MEDICARE ==
[2023-08-20 17:47] LABS: APPEARANCE, URINE HAZY (CLEAR); BACTERIA, URINE AUTO NEGATIVE (NEGATIVE); BILIRUBIN, URINE AUTO NEGATIVE (NEGATIVE); BLOOD, URINE BLOOD NEGATIVE (NEGATIVE); COLOR, URINE YELLOW (YELLOW); GLUCOSE, URINE (UA) AUTO NEGATIVE (NEGATIVE); KETONE, URINE AUTO NEGATIVE (NEGATIVE); LEUKOCYTE ESTERASE, URINE AUTO NEGATIVE (NEGATIVE); MUCUS, URINE SMALL (NEGATIVE); NITRITE, URINE AUTO NEGATIVE (NEGATIVE); PROTEIN, URINE AUTO NEGATIVE (NEGATIVE); RBC, URINE AUTO 1 /HPF (0-3); SPECIFIC GRAVITY URINE AUTO 1.017 (1.002-1.035); SQUAMOUS EPITHELIAL CELL UR AU 0 /HPF (0-6); UROBILINOGEN, URINE AUTO 0.2 mg/dL (0.0-2.0); WBC, URINE AUTO 1 /HPF (0-3)
[2023-08-20 17:53] LABS: ALBUMIN 3.6 G/DL (3.2-5.2); ALKALINE PHOSPHATASE 93 U/L (46-116); ALT/SGPT 22 U/L (7.0-40); AST/SGOT 17 U/L (<34); BILIRUBIN,TOTAL 0.5 MG/DL (0.3-1.2); BLOOD UREA NITROGEN 14 MG/DL (9-23); CALCIUM LEVEL 9.1 MG/DL (8.3-10.6); CARBON DIOXIDE LEVEL 29 MMOL/L (20-31); CHLORIDE LEVEL 106 MMOL/L (98-107); CHOLESTEROL LEVEL 196 MG/DL (<200); CHOLESTEROL RISK RATIO 2.81 (<5); CREATININE FOR GFR 0.85 MG/DL (0.55-1.30); GLOMERULAR FILTRATION RATE > 60.0 (>39); GLUCOSE, FASTING 98 MG/DL (74-106); HDL CHOLESTEROL 69.6 MG/DL (>40); LDL CHOLESTEROL 111.8 MG/DL (<100); MAGNESIUM LEVEL 2.1 MG/DL (1.8-2.4); NON-HDL-C 126.4 MG/DL; POTASSIUM SERUM 3.7 MMOL/L (3.5-5.1); SODIUM LEVEL 138 MMOL/L (136-145); TOTAL PROTEIN 6.5 G/DL (5.7-8.2); TRIGLYCERIDES LEVEL 73 MG/DL (<150)
[2023-08-20 17:54] LABS: FREE T4 1.18 NG/DL (0.89-1.76); THYROID STIMULATING HORMONE 1.868 uIU/ML (0.55-4.78); TOTAL 25(OH) VITAMIN D 29.2 NG/ML (20.0-100.0)
[2023-08-20 17:55] LABS: FOLATE > 24.0 NG/ML (>5.4); HEMATOCRIT 44.7 % (36.0-47.0); HEMOGLOBIN 14.7 g/dl (12.0-15.5); MEAN CORPUSCULAR HEMOGLOBIN 32.2 pg (27.0-33.0); MEAN CORPUSCULAR HGB CONC 32.9 g/dl (32.0-36.5); MEAN CORPUSCULAR VOLUME 97.8 fl (80.0-96.0); PLATELET COUNT, AUTOMATED 378 10^3/uL (150-450); RED BLOOD COUNT 4.57 10^6/uL (4.00-5.40); VITAMIN B12 LEVEL 1568 PG/ML (211-911); WHITE BLOOD COUNT 14.1 10^3/uL (4.0-10.0)
[2023-08-20 18:43] LABS: ATYPICAL LYMPH 3 % (0-5); LYMPHOCYTES 31 % (16-44); MONOCYTES 7 % (0-5); NEUTROPHILS 58 % (28-66)
[2023-08-20 18:44] LABS: PLATELET ESTIMATE NORMAL (NORMAL)
== END ==
LOC: M WUC 10:55
PROVIDERS: ATTEND Physician Assistant
DX: F41.8 Other specified anxiety disorders (principal); E78.2 Mixed hyperlipidemia; R20.2 Paresthesia of skin

== ENCOUNTER 2023-08-21 09:47 | Emergency (ER) | payer MEDICARE ==
[~2023-08-21] VITALS: Ht 154.9 cm; Wt 50.5 kg
[2023-08-21] MEDS: KETOROLAC 60MG 2ML VIAL IM ONE (12:07)
[2023-08-21 12:11] LABS: IONIZED CALCIUM 4.7 MG/DL (4.5-5.3)
[2023-08-21 12:13] LABS: VENOUS BASE EXCESS -2.9 (-2.0-2.0); VENOUS HCO3 22.4 MMOL/L (23.0-27.0); VENOUS O2 SATURATION 35.9 % (60.0-80.0); VENOUS PARTIAL PRESSURE CO2 41.3 mmHg (38.0-50.0); VENOUS PARTIAL PRESSURE O2 21.6 mmHg (30.0-50.0); VENOUS PH 7.353 UNITS (7.330-7.430); VENOUS STANDARD HCO3 20.4 MMOL/L; VENOUS TOTAL CO2 23.7 MMOL/L (24.0-28.0)
[2023-08-21 12:15] LABS: HEMATOCRIT 46.3 % (36.0-47.0); HEMOGLOBIN 15.6 g/dl (12.0-15.5); MEAN CORPUSCULAR HEMOGLOBIN 32.4 pg (27.0-33.0); MEAN CORPUSCULAR HGB CONC 33.7 g/dl (32.0-36.5); MEAN CORPUSCULAR VOLUME 96.1 fl (80.0-96.0); PLATELET COUNT, AUTOMATED 401 10^3/uL (150-450); RED BLOOD COUNT 4.82 10^6/uL (4.00-5.40); WHITE BLOOD COUNT 15.6 10^3/uL (4.0-10.0)
[2023-08-21 12:29] LABS: ATYPICAL LYMPH 17 % (0-5); LYMPHOCYTES 18 % (16-44); MONOCYTES 1 % (0-5); NEUTROPHILS 63 % (28-66)
[2023-08-21 12:31] LABS: PLATELET CLUMPS SMALL AMT; PLATELET ESTIMATE NORMAL (NORMAL); SMUDGE CELLS 1+
[2023-08-21 12:48] LABS: PHOSPHORUS LEVEL 3.6 MG/DL (2.4-5.1)
[2023-08-21 13:43] VITALS: BP 156/90; TEMP 98.2; O2SAT 100
== END 2023-08-21 13:52 | disposition home or self-care (01) ==
LOC: M ED 09:47
DX: G25.9 Extrapyramidal and movement disorder, unspecified (principal); F41.9 Anxiety disorder, unspecified; I10 Essential (primary) hypertension; F32.A Depression, unspecified; F43.10 Post-traumatic stress disorder, unspecified; K58.9 Irritable bowel syndrome, unspecified; Z87.891 Personal history of nicotine dependence; Z79.890 Hormone replacement therapy; Z79.899 Other long term (current) drug therapy; Z88.2 Allergy status to sulfonamides; Z88.0 Allergy status to penicillin; Z88.8 Allergy status to other drugs, medicaments and biological substances
CPT/HCPCS: 82175; 82330; 82570; 82803; 83605; 83825; 84100; 85025; 96372; 99283; J1885

== ENCOUNTER → 2023-09-15 | Outpatient (REF) | payer MEDICARE ==
[2023-09-15 18:28] LABS: BASO # 0.1 10^3/uL (0.0-0.2); BASO % 0.5 % (0.0-1.0); EOS # 0.1 10^3/uL (0.0-0.5); EOS % 0.6 % (0.0-3.0); HEMATOCRIT 44.4 % (36.0-47.0); HEMOGLOBIN 14.9 g/dl (12.0-15.5); LYMPH # 5.1 10^3/uL (1.5-5.0); MEAN CORPUSCULAR HEMOGLOBIN 32.5 pg (27.0-33.0); MEAN CORPUSCULAR HGB CONC 33.6 g/dl (32.0-36.5); MEAN CORPUSCULAR VOLUME 96.7 fl (80.0-96.0); MONO # 0.8 10^3/uL (0.0-0.8); MONO % 6.6 % (2.0-8.0); NEUTROPHILS # 6.3 10^3/uL (1.5-8.5); NEUTROPHILS % 50.8 % (36.0-66.0); PLATELET COUNT, AUTOMATED 348 10^3/uL (150-450); RED BLOOD COUNT 4.59 10^6/uL (4.00-5.40); WHITE BLOOD COUNT 12.3 10^3/uL (4.0-10.0)
== END ==
LOC: M LABWUC 16:47
PROVIDERS: ATTEND Physician Assistant
DX: R79.89 Other specified abnormal findings of blood chemistry (principal)

== ENCOUNTER → 2023-10-15 | Outpatient (REF) | payer MEDICARE ==
[2023-10-15 18:19] LABS: BASO # 0.1 10^3/uL (0.0-0.2); BASO % 0.4 % (0.0-1.0); EOS # 0.1 10^3/uL (0.0-0.5); EOS % 0.8 % (0.0-3.0); HEMATOCRIT 43.6 % (36.0-47.0); HEMOGLOBIN 14.5 g/dl (12.0-15.5); LYMPH # 4.9 10^3/uL (1.5-5.0); LYMPH % 42.9 % (24.0-44.0); MEAN CORPUSCULAR HEMOGLOBIN 32.4 pg (27.0-33.0); MEAN CORPUSCULAR HGB CONC 33.3 g/dl (32.0-36.5); MEAN CORPUSCULAR VOLUME 97.3 fl (80.0-96.0); MONO # 0.8 10^3/uL (0.0-0.8); MONO % 7.2 % (2.0-8.0); NEUTROPHILS # 5.5 10^3/uL (1.5-8.5); NEUTROPHILS % 48.3 % (36.0-66.0); PLATELET COUNT, AUTOMATED 278 10^3/uL (150-450); RED BLOOD COUNT 4.48 10^6/uL (4.00-5.40); WHITE BLOOD COUNT 11.3 10^3/uL (4.0-10.0)
== END ==
LOC: M LABWUC 16:24
PROVIDERS: ATTEND Physician Assistant
DX: D72.829 Elevated white blood cell count, unspecified (principal)

== ENCOUNTER → 2023-11-08 | Outpatient (REF) | payer MEDICARE ==
[2023-11-08 13:07] LABS: APPEARANCE, URINE CLEAR (CLEAR); BACTERIA, URINE AUTO NEGATIVE (NEGATIVE); BILIRUBIN, URINE AUTO NEGATIVE (NEGATIVE); BLOOD, URINE BLOOD NEGATIVE (NEGATIVE); COLOR, URINE STRAW (YELLOW); GLUCOSE, URINE (UA) AUTO NEGATIVE (NEGATIVE); KETONE, URINE AUTO NEGATIVE (NEGATIVE); LEUKOCYTE ESTERASE, URINE AUTO NEGATIVE (NEGATIVE); NITRITE, URINE AUTO NEGATIVE (NEGATIVE); PROTEIN, URINE AUTO NEGATIVE (NEGATIVE); RBC, URINE AUTO 0 /HPF (0-3); SPECIFIC GRAVITY URINE AUTO 1.004 (1.002-1.035); SQUAMOUS EPITHELIAL CELL UR AU 0 /HPF (0-6); UROBILINOGEN, URINE AUTO 0.2 mg/dL (0.0-2.0); WBC, URINE AUTO 0 /HPF (0-3)
== END ==
LOC: M LAB REF 12:26
PROVIDERS: ATTEND Physician Assistant Medical
DX: N39.0 Urinary tract infection, site not specified (principal)

== ENCOUNTER → 2023-11-11 | Outpatient (CLI) | payer MEDICARE ==
[2023-11-11 17:08] LABS: HEMOGLOBIN A1c 5.3 % (4.0-6.0)
== END ==
LOC: M WUC 14:49
PROVIDERS: ATTEND Psychiatry & Neurology Neurology
DX: E11.9 Type 2 diabetes mellitus without complications (principal); G60.9 Hereditary and idiopathic neuropathy, unspecified; D51.9 Vitamin B12 deficiency anemia, unspecified; E51.9 Thiamine deficiency, unspecified; E53.1 Pyridoxine deficiency; E55.9 Vitamin D deficiency, unspecified

== ENCOUNTER 2024-01-29 10:49 | Emergency (ER) | payer MEDICARE ==
[~2024-01-29] VITALS: Ht 154.9 cm; Wt 49.1 kg
[2024-01-29] MEDS ORDERED: MIRT1TAB (11:13)
[2024-01-29] MEDS ORDERED: CLON0.5T2 (11:13)
[2024-01-29] MEDS ORDERED: ESTR1PAT25 (11:13)
[2024-01-29] MEDS ORDERED: DICY20TA20 (11:13)
[2024-01-29] MEDS ORDERED: CITA20TA6 (11:13)
[2024-01-29] MEDS ORDERED: LINZ145C (11:13)
[2024-01-29 12:01] LABS: BASO % 0.4 % (0.0-1.0); EOS # 0.1 10^3/uL (0.0-0.5); EOS % 1.1 % (0.0-3.0); HEMATOCRIT 45.9 % (36.0-47.0); HEMOGLOBIN 15.4 g/dl (12.0-15.5); LYMPH # 3.6 10^3/uL (1.5-5.0); LYMPH % 39.8 % (24.0-44.0); MEAN CORPUSCULAR HEMOGLOBIN 31.2 pg (27.0-33.0); MEAN CORPUSCULAR HGB CONC 33.6 g/dl (32.0-36.5); MEAN CORPUSCULAR VOLUME 93.1 fl (80.0-96.0); MONO # 0.6 10^3/uL (0.0-0.8); MONO % 6.9 % (2.0-8.0); NEUTROPHILS # 4.7 10^3/uL (1.5-8.5); NEUTROPHILS % 51.1 % (36.0-66.0); PLATELET COUNT, AUTOMATED 324 10^3/uL (150-450); RED BLOOD COUNT 4.93 10^6/uL (4.00-5.40); WHITE BLOOD COUNT 9.1 10^3/uL (4.0-10.0)
[2024-01-29 12:31] LABS: LIPASE 41 U/L (12-53)
[2024-01-29 12:33] LABS: ALBUMIN 3.7 G/DL (3.2-5.2); ALKALINE PHOSPHATASE 132 U/L (46-116); ALT/SGPT 23 U/L (7.0-40); AST/SGOT 20 U/L (<34); BILIRUBIN,DIRECT 0.1 MG/DL (<0.4); BILIRUBIN,TOTAL 0.5 MG/DL (0.3-1.2); BLOOD UREA NITROGEN 11 MG/DL (9-23); CALCIUM LEVEL 9.5 MG/DL (8.3-10.6); CARBON DIOXIDE LEVEL 27 MMOL/L (20-31); CHLORIDE LEVEL 110 MMOL/L (98-107); CREATININE FOR GFR 0.81 MG/DL (0.55-1.30); GLOMERULAR FILTRATION RATE > 60.0 (>39); GLUCOSE, FASTING 88 MG/DL (74-106); POTASSIUM SERUM 4.1 MMOL/L (3.5-5.1); SODIUM LEVEL 142 MMOL/L (136-145); TOTAL PROTEIN 6.7 G/DL (5.7-8.2)
[2024-01-29] MEDS: LORazepam 1 MG TAB PO STA (12:52)
[2024-01-29] MEDS: ACETAMINOPHEN TAB 650MG DOSE (2X325MG) PO ONE (14:02)
[2024-01-29 15:19] VITALS: BP 156/72; TEMP 97.1; O2SAT 99
== END 2024-01-29 15:30 | disposition home or self-care (01) ==
LOC: EDBD 10:49 → M ED 10:49
DX: M62.838 Other muscle spasm (principal); F41.9 Anxiety disorder, unspecified; K58.1 Irritable bowel syndrome with constipation; K21.9 Gastro-esophageal reflux disease without esophagitis; K44.9 Diaphragmatic hernia without obstruction or gangrene; F43.10 Post-traumatic stress disorder, unspecified; Z79.899 Other long term (current) drug therapy; Z88.2 Allergy status to sulfonamides; Z88.0 Allergy status to penicillin; Z88.5 Allergy status to narcotic agent; Z88.8 Allergy status to other drugs, medicaments and biological substances

== ENCOUNTER → 2024-07-11 | Outpatient (CLI) | payer MEDICARE ==
[~2024-07-11] MED LIST changes: +CITA20TA6; +CLON0.5T2; +DICY20TA20; +ESTR1PAT25; +LINZ145C; +MIRT1TAB; -SIME180C25 PO; +SIME1CAP4 PO
[2024-07-11 17:30] LABS: LIPASE 31 U/L (12-53)
[2024-07-11 17:32] LABS: ALBUMIN 3.7 G/DL (3.2-5.2); ALKALINE PHOSPHATASE 126 U/L (35-104); ALT/SGPT 21 U/L (7.0-40); AST/SGOT 14 U/L (<34); BILIRUBIN,DIRECT 0.1 MG/DL (<0.4); BILIRUBIN,TOTAL 0.5 MG/DL (0.3-1.2); C REACTIVE PROTEIN QUANTITATIV < 0.50 MG/DL (<1.0); TOTAL PROTEIN 6.6 G/DL (5.7-8.2)
== END ==
LOC: M LAB 16:35
PROVIDERS: ATTEND Internal Medicine Gastroenterology
DX: R10.84 Generalized abdominal pain (principal); R10.13 Epigastric pain; K59.00 Constipation, unspecified

== ENCOUNTER → 2024-07-27 | Outpatient (CLI) | payer MEDICARE ==
[2024-07-27 19:43] LABS: % LABILE ALKALINE PHOSPHATASE 55.5 %
== END ==
LOC: M WUC 14:11
PROVIDERS: ATTEND Internal Medicine Gastroenterology
DX: R74.8 Abnormal levels of other serum enzymes (principal); R94.5 Abnormal results of liver function studies

== ENCOUNTER → 2024-08-16 | Outpatient (CLI) | payer MEDICARE | LOC: M WHC 10:58 | PROVIDERS: ATTEND Internal Medicine | DX: Z12.31 Encounter for screening mammogram for malignant neoplasm of breast (principal); R92.333 Mammographic heterogeneous density, bilateral breasts ==

== ENCOUNTER → 2024-09-20 | Outpatient (REF) | payer MEDICARE ==
[2024-09-20 14:36] LABS: HEMATOCRIT 46.7 % (36.0-47.0); HEMOGLOBIN 15.7 g/dl (12.0-15.5); MEAN CORPUSCULAR HEMOGLOBIN 31.5 pg (27.0-33.0); MEAN CORPUSCULAR HGB CONC 33.6 g/dl (32.0-36.5); MEAN CORPUSCULAR VOLUME 93.6 fl (80.0-96.0); PLATELET COUNT, AUTOMATED 321 10^3/uL (150-450); RED BLOOD COUNT 4.99 10^6/uL (4.00-5.40); WHITE BLOOD COUNT 10.6 10^3/uL (4.0-10.0)
[2024-09-20 14:45] LABS: ERYTHROCYTE SEDIMENTATION RATE 9 mm/hr (0-30)
[2024-09-20 15:05] LABS: C REACTIVE PROTEIN QUANTITATIV < 0.50 MG/DL (<1.0)
[2024-09-20 15:07] LABS: ALBUMIN 3.9 G/DL (3.2-5.2); ALKALINE PHOSPHATASE 129 U/L (35-104); ALT/SGPT 19 U/L (7.0-40); AST/SGOT 13 U/L (<34); BILIRUBIN,TOTAL 0.4 MG/DL (0.3-1.2); BLOOD UREA NITROGEN 11 MG/DL (9-23); CALCIUM LEVEL 9.2 MG/DL (8.3-10.6); CARBON DIOXIDE LEVEL 27 MMOL/L (20-31); CHLORIDE LEVEL 105 MMOL/L (98-107); GLOMERULAR FILTRATION RATE 60.2 (>39); GLUCOSE, FASTING 90 MG/DL (74-106); POTASSIUM SERUM 4.6 MMOL/L (3.5-5.1); SODIUM LEVEL 142 MMOL/L (136-145); TOTAL PROTEIN 6.8 G/DL (5.7-8.2)
== END ==
LOC: M LABWUC 14:14
PROVIDERS: ATTEND Internal Medicine Gastroenterology
DX: Z87.19 Personal history of other diseases of the digestive system (principal); R10.84 Generalized abdominal pain